=== PATIENT | female | born 1960 | race Caucasian/White ===

== ENCOUNTER 2016-07-08 09:20 | Emergency (ER) | payer BC ==
[~2016-07-08] VITALS: Ht 157.5 cm; Wt 85.7 kg
[~2016-07-08 09:20] MED LIST: AMLO10TA2 PO; LISI-334 PO; METO25TA4 PO
--- NOTE | 2016-07-08 10:51 | RAD ---
Indication pain. AP and lateral films of the left femur were obtained. Femur was imaged to just above the knee. AP oblique and lateral views of the left knee were obtained as well as a sunrise view. No acute bony finding is seen. Significant joint fluid is not apparent
--- NOTE | 2016-07-08 11:50 | PHYS DOC ---
Past Medical History Past Medical History: DVT, Hypertension, Other Additional Past Medical Histor: HLD Past Surgical History: No Surgical History Additional Past Surgical Histo: hernia repair, kidney stone, right eye Alcohol Use: None Drug Use: None Adult General Chief Complaint Chief Complaint: LOWER EXT PAIN [facility] HPI Patient is a 55 year old female with history of hypertension who presents today with mild left proximal femur pain that began 2 weeks ago. Patient states the pain is worse on flexion of the knee. Patient denies any trauma. Review of Systems Review of Systems Constitutional: Denies fever or chills [] Eyes: Denies change in visual acuity, redness, or eye pain [] HENT: Denies nasal congestion or sore throat [] Respiratory: Denies cough or shortness of breath [] Cardiovascular: No additional information not addressed in HPI [] GI: Denies abdominal pain, nausea, vomiting, bloody stools or diarrhea [] : Denies dysuria or hematuria [] Musculoskeletal: Left distal femur pain Integument: Denies rash or skin lesions [] Neurologic: Denies headache, focal weakness or sensory changes [] Endocrine: Denies polyuria or polydipsia [] Allergies Allergies Allergies Coded Allergies Type Severity Reaction Last Updated Verified cefazolin Allergy Unknown 05/21/13 Yes Physical Exam Physical Exam Constitutional: Well developed, well nourished, no acute distress, non-toxic appearance. [] HENT: Normocephalic, atraumatic, bilateral external ears normal, oropharynx moist, no oral exudates, nose normal. [] Eyes: PERRLA, EOMI, conjunctiva normal, no discharge. [] Neck: Normal range of motion, no tenderness, supple, no stridor. [] Cardiovascular:Heart rate regular rhythm, no murmur [] Lungs & Thorax: Bilateral breath sounds clear to auscultation [] Abdomen: Bowel sounds normal, soft, no tenderness, no masses, no pulsatile masses. [] Skin: Warm, dry, no erythema, no rash. [] Back: No tenderness, no CVA tenderness. [] Extremities: Left lower extremity with no obvious deformity, no tenderness on palpation of the left lower extremity. Full range of motion to the left lower extremity. Negative Tiffany sign and negative Dennis's sign negative anterior- posterior drawer sign to the left knee. +2 left pedal pulse. Cap refill less than 2 seconds the left lower extremity. Neurologic: Alert and oriented X 3, normal motor function, normal sensory function, no focal deficits noted. [] Psychologic: Affect normal, judgement normal, mood normal. [] Current Patient Data Vital Signs Vital Signs Date Time Temp Pulse Resp B/P (MAP) Pulse Ox O2 Delivery O2 Flow Rate FiO2 07/08/16 09:41 98.1 72 18 170/97 (121) 97 Room Air 98.1 EKG EKG [] Radiology/Procedures Radiology/Procedures [] Course & Med Decision Making Course & Med Decision Making Pertinent Labs and Imaging studies reviewed. (See chart for details) Patient is in the ED with complaints of left distal femur pain, no injury. Pain appears musculoskeletal. X-ray of the left femur and left knee interpreted by radiologist are negative for any acute findings. Discharged with Medrol Dosepak and Flexeril. Provided orthopedic doctor for follow-up in one week. Dragon Disclaimer Dragon Disclaimer This electronic medical record was generated, in whole or in part, using a voice recognition dictation system. Departure Departure Impression: Primary Impression: Pain of left lower extremity Disposition: HOME, SELF-CARE Condition: STABLE Referrals: UNKNOWN PCP NAME (PCP) LELIA ARAUJO MD follow up in one week Patient Instructions: Musculoskeletal Pain Additional Instructions: You were seen for musculoskeletal pain of the left lower extremity. Follow-up with the provided orthopedic doctor or your own doctor in one week. Take the prescribed medicines as ordered. Scripts Cyclobenzaprine Hcl (CYCLOBENZAPRINE HCL) 10 Mg Tablet 1 TAB PO TID, #30 TAB Prov: JOHNNY MAS [employer] 07/08/16 Diclofenac Potassium (DICLOFENAC POTASSIUM) 50 Mg Tablet 1 TAB PO BID, #30 TAB 1 Refill Prov: TGJOHNNY [employer] 07/08/16 Methylprednisolone (MEDROL) 4 Mg Tab.ds.pk 1 PKG PO UD, #1 PKG Prov: JOHNNY MAS [employer] 07/08/16 JOHNNY MAS MONA July 08, 2016 11:50
[2016-07-08] MEDS ORDERED: CYCL10TA2 PO (11:57)
[2016-07-08] MEDS ORDERED: DICL50TA2 PO (11:57)
[2016-07-08] MEDS ORDERED: METH4TAB2 PO (11:57)
[2016-07-08 12:01] VITALS: BP 149/75
== END 2016-07-08 12:02 | disposition home or self-care (01) ==
LOC: ER 09:20
DX: M79.605 Pain in left leg (principal); I10 Essential (primary) hypertension; E78.5 Hyperlipidemia, unspecified; Z86.718 Personal history of other venous thrombosis and embolism; Z87.442 Personal history of urinary calculi; Z88.1 Allergy status to other antibiotic agents
CPT/HCPCS: 73552; 73564; 99284

== ENCOUNTER 2018-02-04 08:53 | Emergency (ER) | payer BC ==
[~2018-02-04] VITALS: Ht 157.5 cm; Wt 81.6 kg
[~2018-02-04 08:53] MED LIST changes: -AMLO10TA2 PO; +AMLO10TA6 PO; +CYCL10TA2 PO; +DICL50TA2 PO; +METH4TAB2 PO
[2018-02-04 09:52] LABS: BILIRUBIN,URINE NEGATIVE (NEG); CLARITY,URINE CLEAR; COLOR,URINE YELLOW; NITRITE,URINE NEGATIVE (NEG); PH,URINE 6.5; PROTEIN,URINE NEGATIVE (NEG-TRACE); UROBILINOGEN,URINE 0.2 mg/dL (0.2 mg/dL)
[2018-02-04] MEDS ORDERED: ORPHENADRINE CITRATE 60 MG/2 ML VIAL. IM ONE (10:00)
[2018-02-04] MEDS ORDERED: KETOROLAC 60 MG/2 ML VIAL. IM ONE (10:00)
[2018-02-04 10:07] LABS: BACTERIA,URINE 0 /HPF (0-FEW); RBC,URINE 0 /HPF (0-2); SQUAMOUS EPITHELIAL CELL,UR FEW /LPF; WBC,URINE 0 /HPF (0-4)
[2018-02-04] MEDS ORDERED: ORPH100T PO (10:23)
[2018-02-04] MEDS ORDERED: IBUP-1007 PO (10:23)
--- NOTE | 2018-02-04 10:23 | PHYS DOC ---
Past Medical History Past Medical History: DVT, Hypertension, Other Additional Past Medical Histor: HLD Past Surgical History: Other Additional Past Surgical Histo: hernia repair, kidney stone, right eye Alcohol Use: None Drug Use: None Adult General Chief Complaint Chief Complaint: BACK PAIN OR INJURY HPI HPI Patient is a 57 year old female who presents with yesterday she was using the restroom and when she went to wipe herself she bent over and twisted to the side of which she began having mid lower left back pain especially with movement. Doesn't radiate. Patient is ambulatory with a steady gait. Review of Systems Review of Systems Constitutional: Denies fever or chills [] Eyes: Denies change in visual acuity, redness, or eye pain [] HENT: Denies nasal congestion or sore throat [] Respiratory: Denies cough or shortness of breath [] Cardiovascular: No additional information not addressed in HPI [] GI: Denies abdominal pain, nausea, vomiting, bloody stools or diarrhea [] : Denies dysuria or hematuria [] Musculoskeletal: Left lower back pain or joint pain [] Integument: Denies rash or skin lesions [] Neurologic: Denies headache, focal weakness or sensory changes [] All other systems were reviewed and found to be within normal limits, except as documented in this note. Current Medications Current Medications Current Medications Medications (Trade) Dose Ordered Sig/Cristina Start Time Stop Time Status Last Admin Dose Admin Ketorolac Tromethamine (Toradol Im) 60 mg 1X ONCE 02/04/18 10:00 02/04/18 10:01 DC 02/04/18 09:55 60 MG Orphenadrine Citrate (Norflex) 60 mg 1X ONCE 02/04/18 10:00 02/04/18 10:01 DC 02/04/18 09:54 60 MG Allergies Allergies Allergies Coded Allergies Type Severity Reaction Last Updated Verified cefazolin Allergy Intermediate 02/04/18 Yes Physical Exam Physical Exam Constitutional: Well developed, well nourished, no acute distress, non-toxic appearance. [] HENT: Normocephalic, atraumatic, bilateral external ears normal, oropharynx moist, no oral exudates, nose normal. [] Eyes: PERRLA, EOMI, conjunctiva normal, no discharge. [] Neck: Normal range of motion, no tenderness, supple, no stridor. [] Cardiovascular:Heart rate regular rhythm, no murmur [] Lungs & Thorax: Bilateral breath sounds clear to auscultation [] Abdomen: Bowel sounds normal, soft, no tenderness, no masses, no pulsatile masses. [] Skin: Warm, dry, no erythema, no rash. [] Back: Left lower mid back tenderness, no CVA tenderness. [] Extremities: No tenderness, no cyanosis, no clubbing, ROM intact, no edema. [] Neurologic: Alert and oriented X 3, normal motor function, normal sensory function, no focal deficits noted. [] Psychologic: Affect normal, judgement normal, mood normal. [] Current Patient Data Vital Signs Vital Signs Date Time Temp Pulse Resp B/P (MAP) Pulse Ox O2 Delivery O2 Flow Rate FiO2 02/04/18 09:28 97.7 68 18 173/80 (111) 97 Room Air 97.7 Lab Values Laboratory Tests Test 02/04/18 09:27 Urine Collection Type Unknown Urine Color Yellow Urine Clarity Clear Urine pH 6.5 Urine Specific Latty 1.020 Urine Protein Negative mg/dL (NEG-TRACE) Urine Glucose (UA) Negative mg/dL (NEG) Urine Ketones (Stick) Negative mg/dL (NEG) Urine Blood Negative (NEG) Urine Nitrite Negative (NEG) Urine Bilirubin Negative (NEG) Urine Urobilinogen Dipstick 0.2 mg/dL (0.2 mg/dL) Urine Leukocyte Esterase Small (NEG) Urine RBC 0 /HPF (0-2) Urine WBC 0 /HPF (0-4) Urine Squamous Epithelial Cells Few /LPF Urine Bacteria 0 /HPF (0-FEW) EKG EKG [] Radiology/Procedures Radiology/Procedures [] Course & Med Decision Making Course & Med Decision Making Patient is a 57 year old female who presents with yesterday she was using the restroom and when she went to wipe herself she bent over and twisted to the side of which she began having mid lower left back pain especially with movement. Doesn't radiate. Patient is ambulatory with a steady gait. Alert and oriented. Patient can move in bend but it does cause her pain. She denies numbness or tingling, nausea, vomiting, chest pain, dysuria. Patient has some tenderness with palpation to one small area on her left mid back. Skin is pink warm and dry. Dragon Disclaimer Dragon Disclaimer This electronic medical record was generated, in whole or in part, using a voice recognition dictation system. Departure Departure Impression: Primary Impression: Low back strain Disposition: 01 HOME, SELF-CARE Condition: STABLE Referrals: UNKNOWN PCP NAME (PCP) Patient Instructions: Low Back Strain with [facility] Additional Instructions: FOLLOW UP WITH YOUR PRIMARY CARE. TAKE MEDICATIONS PRESCRIBED. Scripts Orphenadrine Citrate (ORPHENADRINE CITRATE) 100 Mg Tablet.er 1 TAB PO BID, #20 TAB Prov: MERCEDES MCKEON APRN 02/04/18 Ibuprofen (IBUPROFEN) 600 Mg Tablet 600 MG PO PRN Q6HRS PRN for INFLAMMATION, #20 TAB Prov: MERCEDES MCKEON APRN 02/04/18 Problem Qualifiers Primary Impression: Low back strain Encounter type: initial encounter Qualified Codes: S39.012A - Strain of muscle, fascia and tendon of lower back, initial encounter MERCEDES MCKEON APRN Feb 04, 2018 10:23
[2018-02-04 10:46] VITALS: BP 163/76
== END 2018-02-04 10:34 | disposition home or self-care (01) ==
LOC: ER 08:53
DX: S39.012A Strain of muscle, fascia and tendon of lower back, initial encounter (principal); I10 Essential (primary) hypertension; Z86.718 Personal history of other venous thrombosis and embolism; E78.5 Hyperlipidemia, unspecified; Z88.1 Allergy status to other antibiotic agents; X50.1XXA Overexertion from prolonged static or awkward postures, initial encounter; Y93.89 Activity, other specified; Y92.89 Other specified places as the place of occurrence of the external cause; Y99.8 Other external cause status
CPT/HCPCS: 81001; 87086; 96372; 99283; J1885; J2360

== ENCOUNTER 2018-11-16 10:03 | Emergency (ER) | payer BC ==
[~2018-11-16] VITALS: Ht 157.5 cm; Wt 84.4 kg
[~2018-11-16 10:03] MED LIST changes: -AMLO10TA6 PO; +AMLO10TA8 PO; +IBUP-1007 PO; +ORPH100T PO
[2018-11-16 10:18] VITALS: BP 127/63
--- NOTE | 2018-11-16 10:27 | PHYS DOC ---
Past Medical History Past Medical History: DVT, Hypertension, Other Additional Past Medical Histor: HLD Past Surgical History: Other Additional Past Surgical Histo: hernia repair, kidney stone, right eye Alcohol Use: None Drug Use: None Adult General Chief Complaint Chief Complaint: PAIN ON URINATION [facility] HPI Patient is a 58 year old female who presents with complaining of burning with urination. Patient complaining of dysuria for the last 2 weeks without hematuria, urinary frequency, abdominal pain, nausea vomiting, fever and chills. Patient states she had history of occasional episodes of UTI. Review of Systems Review of Systems Constitutional: Denies fever or chills [] Eyes: Denies change in visual acuity, redness, or eye pain [] HENT: Denies nasal congestion or sore throat [] Respiratory: Denies cough or shortness of breath [] Cardiovascular: No additional information not addressed in HPI [] GI: Denies abdominal pain, nausea, vomiting, bloody stools or diarrhea [] : Denies hematuria , reports dysuria[] Musculoskeletal: Denies back pain or joint pain [] Integument: Denies rash or skin lesions [] Neurologic: Denies headache, focal weakness or sensory changes [] Endocrine: Denies polyuria or polydipsia [] All other systems were reviewed and found to be within normal limits, except as documented in this note. Allergies Allergies Allergies Coded Allergies Type Severity Reaction Last Updated Verified cefazolin Allergy Intermediate 02/04/18 Yes Physical Exam Physical Exam Constitutional: Well developed, well nourished, mild distress, non-toxic appearance. [] HENT: Normocephalic, atraumatic. Eyes: PERRLA, EOMI, conjunctiva normal, no discharge. [] Neck: Normal range of motion, no tenderness, supple, no stridor. [] Cardiovascular:Heart rate regular rhythm, no murmur [] Lungs & Thorax: Bilateral breath sounds clear to auscultation [] Abdomen: Bowel sounds normal, soft, no tenderness, no masses, no pulsatile masses. [] Skin: Warm, dry, no erythema, no rash. [] Back: No tenderness, no CVA tenderness. [] Extremities: No tenderness, no cyanosis, no clubbing, ROM intact, no edema. [] Neurologic: Alert and oriented X 3, no focal deficits noted. [] Psychologic: Affect normal, judgement normal, mood normal. [] Current Patient Data Vital Signs Vital Signs Date Time Temp Pulse Resp B/P (MAP) Pulse Ox O2 Delivery O2 Flow Rate FiO2 11/16/18 10:18 98.5 76 16 127/63 (84) 98 Room Air 98.5 Lab Values Laboratory Tests Test 11/16/18 10:20 Urine Collection Type Unknown Urine Color Yellow Urine Clarity Clear Urine pH 5.0 Urine Specific [place] 1.025 Urine Protein Negative mg/dL (NEG-TRACE) Urine Glucose (UA) Negative mg/dL (NEG) Urine Ketones (Stick) Negative mg/dL (NEG) Urine Blood Moderate (NEG) Urine Nitrite Negative (NEG) Urine Bilirubin Negative (NEG) Urine Urobilinogen Dipstick 0.2 mg/dL (0.2 mg/dL) Urine Leukocyte Esterase Large (NEG) Urine RBC 11-20 /HPF (0-2) Urine WBC >40 /HPF (0-4) Urine Squamous Epithelial Cells Occ /LPF Urine Bacteria Few /HPF (0-FEW) Urine Hyaline Casts Moderate /HPF Urine Mucus Marked /LPF EKG EKG [] Radiology/Procedures Radiology/Procedures [] Course & Med Decision Making Course & Med Decision Making Pertinent Labs reviewed. (See chart for details) Evaluation of patient in ER showed 58-year-old male patient with complaining of dysuria for 2 weeks. Patient had unremarkable physical exam. UA showed more than 40 WBC and few RBCs. Patient requesting a Pap smear. Patient had history of hysterectomy informed that she doesn't need Pap smear after hysterectomy. I've spoken with the patient and/or caregivers. I've explained the patient's condition, diagnosis and treatment plan based on information available to me at this time. I've answered the patient's and/or caregivers questions and addressed any concerns. The patient and/or caregivers have a good understanding the patient's diagnosis, condition and treatment plan as can be expected at this point. Vital signs have been stabilized. The patient's condition is stable for discharge from the emergency department. The patient will pursue further outpatient evaluation with her primary care provider or other designated consulting physician as outlined in the discharge instructions. Patient and/or caregivers are agreeable to this plan of care and follow-up instructions have been explained in detail. The patient and/or caregivers have received these instructions in written format and expressed understanding of these discharge instructions. The patient and her caregivers are aware that if any significant change in condition or worsening of symptoms should prompt him to immediately return to this of the closest emergency department. If an emergent department is not readily available I would encourage him to call 911. Rg Disclaimer Rg Disclaimer This electronic medical record was generated, in whole or in part, using a voice recognition dictation system. Departure Departure Impression: Primary Impression: Acute hemorrhagic cystitis Additional Impression: Dysuria Disposition: HOME, SELF-CARE (at 1048) Condition: STABLE Referrals: TRISTAIN LAYTON (PCP) Patient Instructions: Dysuria, Urinary Tract Infection Additional Instructions: Drink plenty of liquids Follow-up with your primary care physician in 3-5 days Return to ER if not getting better Scripts Phenazopyridine Hcl (PYRIDIUM) 100 Mg Tablet 100 MG PO TID for dysuria, #10 TAB Prov: KAITLYN WHITMORE MD 11/16/18 Ciprofloxacin Hcl (CIPRO) 250 Mg Tablet 1 TAB PO BID for infection, #14 TAB Prov: KAITLYN WHITMORE MD 11/16/18 Problem Qualifiers KAITLYN WHITMORE MD Nov 16, 2018 10:26
[2018-11-16 10:29] LABS: BILIRUBIN,URINE NEGATIVE (NEG); CLARITY,URINE CLEAR; COLOR,URINE YELLOW; NITRITE,URINE NEGATIVE (NEG); PROTEIN,URINE NEGATIVE (NEG-TRACE); UROBILINOGEN,URINE 0.2 mg/dL (0.2 mg/dL)
[2018-11-16 10:36] LABS: WBC,URINE >40 /HPF (0-4)
[2018-11-16 10:37] LABS: BACTERIA,URINE FEW /HPF (0-FEW); SQUAMOUS EPITHELIAL CELL,UR OCC /LPF
[2018-11-16 10:38] LABS: HYALINE CASTS, URINE MODERATE /HPF
[2018-11-16] MEDS ORDERED: PHEN100T82 PO (10:51)
[2018-11-16] MEDS ORDERED: CIPR250T30 PO (10:51)
== END 2018-11-16 11:01 | disposition home or self-care (01) ==
LOC: ER 10:03
DX: N30.00 Acute cystitis without hematuria (principal); I10 Essential (primary) hypertension; Z86.718 Personal history of other venous thrombosis and embolism; Z98.890 Other specified postprocedural states; Z87.442 Personal history of urinary calculi; Z88.8 Allergy status to other drugs, medicaments and biological substances
CPT/HCPCS: 81001; 87086; 99284

== ENCOUNTER 2019-03-03 04:58 | Inpatient (IN) | payer BC ==
[~2019-03-03] VITALS: Ht 157.5 cm; Wt 82.1 kg
[~2019-03-03 04:58] MED LIST changes: +CIPR250T30 PO; +PHEN100T82 PO
--- NOTE | 2019-03-03 05:12 | PHYS DOC ---
Past Medical History Past Medical History: DVT, Hypertension, Other Additional Past Medical Histor: HLD (JOHANA COSTA MD) Past Surgical History: Hysterectomy, Other Additional Past Surgical Histo: hernia repair, kidney stone, right eye (JOHANA COSTA MD) Alcohol Use: None Drug Use: None (JOHANA COSTA MD) Adult General Chief Complaint Chief Complaint: NAUSEA/VOMITING/DIARRHA HPI HPI 58 yo female with underlying history of HTN presents to the ER with complaints of nausea, vomiting, diarrhea, abdominal pain which started around 1 am. Patient describes the pain as achy/generalized. She states she is mildly bloated. Patient has vomited 4 times since waking up at 1am. Nothing makes her symptoms worse or better on exam. Patient denies any headache, visual change, chest pain or SOB. Patient states a coworker was sick yesterday. (JOHANA COSTA MD) Review of Systems Review of Systems Constitutional: Denies fever or chills [] Respiratory: Denies cough or shortness of breath [] Cardiovascular: No additional information not addressed in HPI [] GI: + abdominal pain, nausea, vomiting, diarrhea [] : Denies dysuria or hematuria [] Musculoskeletal: Denies back pain or joint pain [] Integument: Denies rash or skin lesions [] Neurologic: Denies headache, focal weakness or sensory changes [] All other systems were reviewed and found to be within normal limits, except as documented in this note. (JOHANA COSTA MD) Current Medications Current Medications Current Medications Medications (Trade) Dose Ordered Sig/Cristina Start Time Stop Time Status Last Admin Dose Admin Info (CONTRAST GIVEN -- Rx MONITORING) 1 each PRN DAILY PRN 03/03/19 07:30 03/05/19 07:29 Iohexol (Omnipaque 300 Mg/ml) 75 ml 1X ONCE 03/03/19 07:30 03/03/19 07:31 DC 03/03/19 07:38 75 ML Ketorolac Tromethamine (Toradol 30mg Vial) 30 mg 1X ONCE 03/03/19 07:15 03/03/19 07:16 DC 03/03/19 07:43 30 MG Ondansetron HCl (Zofran) 4 mg 1X ONCE 03/03/19 05:30 03/03/19 05:31 DC 03/03/19 06:04 4 MG Sodium Chloride 1,000 ml @ 1,000 mls/hr Q1H 03/03/19 05:30 03/03/19 06:29 DC 03/03/19 06:04 1,000 MLS/HR (KAITLYN WHITMORE MD) Allergies Allergies Allergies Coded Allergies Type Severity Reaction Last Updated Verified cefazolin Allergy Intermediate 02/04/18 Yes (KAITLYN WHITMORE MD) Physical Exam Physical Exam Constitutional: Well developed, well nourished, no acute distress, non-toxic appearance. [] HENT: Normocephalic, atraumatic, bilateral external ears normal, oropharynx moist, no oral exudates, nose normal. [] Eyes: PERRLA, EOMI, conjunctiva normal, no discharge. [] Cardiovascular:Heart rate regular rhythm, no murmur [] Lungs & Thorax: Bilateral breath sounds clear to auscultation [] Abdomen: Bowel sounds normal, soft, distended, generalized tenderness on exam, no masses, no pulsatile masses. [] Skin: Warm, dry, no erythema, no rash. [] Back: No tenderness, no CVA tenderness. [] Extremities: No tenderness, no edema. [] Neurologic: Alert and oriented X 3, no focal deficits noted. [] Psychologic: Affect normal, judgement normal, mood normal. [] (JOHANA COSTA MD) Current Patient Data Vital Signs Vital Signs Date Time Temp Pulse Resp B/P (MAP) Pulse Ox O2 Delivery O2 Flow Rate FiO2 03/03/19 07:45 70 18 159/76 (103) 98 Room Air 03/03/19 05:00 97.7 97.7 (KAITLYN WHITMORE MD) Lab Values Laboratory Tests Test 03/03/19 05:40 03/03/19 06:38 03/03/19 06:45 White Blood Count 9.2 x10^3/uL (4.0-11.0) Red Blood Count 4.57 x10^6/uL (3.50-5.40) Hemoglobin 13.3 g/dL (12.0-15.5) Hematocrit 40.1 % (36.0-47.0) Mean Corpuscular Volume 88 fL (79-100) Mean Corpuscular Hemoglobin 29 pg (25-35) Mean Corpuscular Hemoglobin Concent 33 g/dL (31-37) Red Cell Distribution Width 16.0 % (11.5-14.5) H Platelet Count 289 x10^3/uL (140-400) Neutrophils (%) (Auto) 80 % (31-73) H Lymphocytes (%) (Auto) 16 % (24-48) L Monocytes (%) (Auto) 3 % (0-9) Eosinophils (%) (Auto) 0 % (0-3) Basophils (%) (Auto) 0 % (0-3) Neutrophils # (Auto) 7.4 x10^3/uL (1.8-7.7) Lymphocytes # (Auto) 1.5 x10^3/uL (1.0-4.8) Monocytes # (Auto) 0.3 x10^3/uL (0.0-1.1) Eosinophils # (Auto) 0.0 x10^3/uL (0.0-0.7) Basophils # (Auto) 0.0 x10^3/uL (0.0-0.2) Sodium Level 140 mmol/L (136-145) Potassium Level 4.3 mmol/L (3.5-5.1) Chloride Level 102 mmol/L (98-107) Carbon Dioxide Level 26 mmol/L (21-32) Anion Gap 12 (6-14) Blood Urea Nitrogen 14 mg/dL (7-20) Creatinine 0.7 mg/dL (0.6-1.0) Estimated GFR (Cockcroft-Gault) 85.9 BUN/Creatinine Ratio 20 (6-20) Glucose Level 169 mg/dL (70-99) H Calcium Level 9.3 mg/dL (8.5-10.1) Magnesium Level 1.7 mg/dL (1.8-2.4) L Total Bilirubin 0.3 mg/dL (0.2-1.0) Aspartate Amino Transferase (AST) 21 U/L (15-37) Alanine Aminotransferase (ALT) 23 U/L (14-59) Alkaline Phosphatase 90 U/L (46-116) Total Protein 7.8 g/dL (6.4-8.2) Albumin 3.5 g/dL (3.4-5.0) Albumin/Globulin Ratio 0.8 (1.0-1.7) L Lipase 517 U/L (73-393) H Troponin I Quantitative < 0.017 ng/mL (0.000-0.055) Urine Collection Type Unknown Urine Color Yellow Urine Clarity Cloudy Urine pH 6.0 Urine Specific [place] >=1.030 Urine Protein 100 mg/dL (NEG-TRACE) Urine Glucose (UA) Negative mg/dL (NEG) Urine Ketones (Stick) Negative mg/dL (NEG) Urine Blood Moderate (NEG) Urine Nitrite Negative (NEG) Urine Bilirubin Negative (NEG) Urine Urobilinogen Dipstick 0.2 mg/dL (0.2 mg/dL) Urine Leukocyte Esterase Large (NEG) Urine RBC 3-5 /HPF (0-2) Urine WBC 20-40 /HPF (0-4) Urine Squamous Epithelial Cells Mod /LPF Urine Bacteria Few /HPF (0-FEW) Urine Mucus Marked /LPF Laboratory Tests 03/03/19 05:40 Laboratory Tests 03/03/19 05:40 (KAITLYN WHITMORE MD) Lab Values Laboratory Tests Test 03/03/19 05:40 White Blood Count 9.2 x10^3/uL (4.0-11.0) Red Blood Count 4.57 x10^6/uL (3.50-5.40) Hemoglobin 13.3 g/dL (12.0-15.5) Hematocrit 40.1 % (36.0-47.0) Mean Corpuscular Volume 88 fL (79-100) Mean Corpuscular Hemoglobin 29 pg (25-35) Mean Corpuscular Hemoglobin Concent 33 g/dL (31-37) Red Cell Distribution Width 16.0 % (11.5-14.5) H Platelet Count 289 x10^3/uL (140-400) Neutrophils (%) (Auto) 80 % (31-73) H Lymphocytes (%) (Auto) 16 % (24-48) L Monocytes (%) (Auto) 3 % (0-9) Eosinophils (%) (Auto) 0 % (0-3) Basophils (%) (Auto) 0 % (0-3) Neutrophils # (Auto) 7.4 x10^3/uL (1.8-7.7) Lymphocytes # (Auto) 1.5 x10^3/uL (1.0-4.8) Monocytes # (Auto) 0.3 x10^3/uL (0.0-1.1) Eosinophils # (Auto) 0.0 x10^3/uL (0.0-0.7) Basophils # (Auto) 0.0 x10^3/uL (0.0-0.2) Laboratory Tests 03/03/19 05:40 (JOHANA COSTA MD) EKG EKG [] (JOHANA COSTA MD) Radiology/Procedures Radiology/Procedures [] (JOHANA COSTA MD) Course & Med Decision Making Course & Med Decision Making Pertinent Labs and Imaging studies reviewed. (See chart for details) []58 yo female with underlying history of HTN presents to the ER with complaints of nausea, vomiting, diarrhea, abdominal pain which started around 1 am. Patient describes the pain as achy/generalized. She states she is mildly bloated. Patient has vomited 4 times since waking up at 1am. Nothing makes her symptoms worse or better on exam. Patient denies any headache, visual change, chest pain or SOB. Patient states a coworker was sick yesterday. Awaiting labs/imaging at this time Care transitioned to DR. WHITMORE at 0600 shift change. Disposition to be determined per DR. WHITMORE (JOHANA COSTA MD) Course & Med Decision Making @0700: Patient care transferred to ne at 0600. Patient had episode of nausea and vomiting and diarrhea since 1 AM. CBC and CMP was unremarkable except for magnesium of 1.7. UA showed 20-40 WBC. Patient complaining of generalized abdominal pain and rated her pain 8/10. Toradol was ordered. KUB did not show acute finding. CT abdomen and pelvis was ordered with pending results. @0820: Patient better after pain medication. Cipro for UTI was started. CT abdomen and pelvis showed ventral hernia with partial small bowel obstruction. Patient had history of previous ventral hernia repair.Patient requiring admission for further evaluation and treatment. Discussed with Dr. Francis who is in agreement with admission. Discussed findings and plan with patient and family, who acknowledge understanding and agreement. (KAITLYN WHITMORE MD) Dragon Disclaimer Dragon Disclaimer This electronic medical record was generated, in whole or in part, using a voice recognition dictation system. (JOHANA COSTA MD) Departure Departure Impression: Primary Impression: Partial small bowel obstruction Additional Impressions: Urinary tract infection Hypomagnesemia Disposition: 09 ADMITTED INPATIENT (0 820) Admitting Physician: [facility] (Dr. Francis accepted admission at 0818) (KAITLYN WHITMORE MD) Condition: IMPROVED Referrals: TRISTIAN LAYTON (PCP) Problem Qualifiers Additional Impressions: Urinary tract infection Urinary tract infection type: site unspecified Hematuria presence: without hematuria Qualified Codes: N39.0 - Urinary tract infection, site not specified JOHANA COSTA MD Mar 03, 2019 05:12 KAITLYN WHITMORE MD Mar 03, 2019 07:39
[2019-03-03] MEDS ORDERED: IV NORMAL SALINE 1000ML BAG 1,000 ML IV SCH (05:30)
[2019-03-03] MEDS ORDERED: ONDANSETRON PF 4 MG/2 ML VIAL. IV ONE (05:30)
[2019-03-03 05:55] LABS: BASO % 0 % (0-3); EOS % 0 % (0-3); HEMATOCRIT 40.1 % (36.0-47.0); HEMOGLOBIN 13.3 g/dL (12.0-15.5); LYMPH # 1.5 x10^3/uL (1.0-4.8); LYMPH % 16 % (24-48); MEAN CORPUSCULAR HEMOGLOBIN 29 pg (25-35); MEAN CORPUSCULAR HGB CONC 33 g/dL (31-37); MEAN CORPUSCULAR VOLUME 88 fL (79-100); MONO # 0.3 x10^3/uL (0.0-1.1); MONO % 3 % (0-9); NEUT # 7.4 x10^3/uL (1.8-7.7); NEUT % 80 % (31-73); PLATELET COUNT 289 x10^3/uL (140-400); RED BLOOD COUNT 4.57 x10^6/uL (3.50-5.40); WHITE BLOOD COUNT 9.2 x10^3/uL (4.0-11.0)
--- NOTE | 2019-03-03 06:05 | RAD ---
Supine abdomen. HISTORY: Bowel distention Supine views were taken of the abdomen. There is a single mildly dilated loop of small bowel to the right of midline. Pattern is somewhat nonspecific. There are changes from previous surgery. Patient's had a cholecystectomy. There is degenerative change in lumbar spine. IMPRESSION: 1. Single mildly dilated small bowel loop nonspecific pattern. Electronically signed by: Cj Streeter MD (03/03/2019 6:02 AM) [id number]
[2019-03-03 06:06] LABS: CALCIUM 9.3 mg/dL (8.5-10.1); CREATININE 0.7 mg/dL (0.6-1.0); GFR 85.9; POTASSIUM 4.3 mmol/L (3.5-5.1)
[2019-03-03 06:11] LABS: ALBUMIN 3.5 g/dL (3.4-5.0); ALBUMIN/GLOBULIN RATIO 0.8 (1.0-1.7); TOTAL BILIRUBIN 0.3 mg/dL (0.2-1.0); TOTAL PROTEIN 7.8 g/dL (6.4-8.2)
[2019-03-03 07:00] LABS: BILIRUBIN,URINE NEGATIVE (NEG); CLARITY,URINE CLOUDY; COLOR,URINE YELLOW; NITRITE,URINE NEGATIVE (NEG); PROTEIN,URINE 100 mg/dL (NEG-TRACE); UROBILINOGEN,URINE 0.2 mg/dL (0.2 mg/dL)
[2019-03-03] MEDS ORDERED: KETOROLAC 30 MG/ML VIAL. IVP ONE (07:15)
[2019-03-03 07:30] LABS: BACTERIA,URINE FEW /HPF (0-FEW); WBC,URINE 20-40 /HPF (0-4)
[2019-03-03] MEDS ORDERED: IOHEXOL 300 MG/ML 100ML VIAL. IV ONE (07:30)
[2019-03-03] MEDS ORDERED: CONTRAST GIVEN. MC PRN (07:30)
[2019-03-03 07:31] LABS: SQUAMOUS EPITHELIAL CELL,UR MOD /LPF
--- NOTE | 2019-03-03 08:03 | RAD ---
CT ABD PELV W/ IV CONTRST ONLY History: Abdominal pain, nausea, vomiting Comparison: 06/26/2011 Technique: After administration of intravenous contrast, helical CT of the abdomen and pelvis was performed from the lung bases through the ischial tuberosities. Coronal and sagittal reconstructions were obtained. 75 mL of Omnipaque 350 were used. One or more of the following dose reduction techniques were utilized: Automated exposure control (AEC), Adjustment of mA and/or kV according to patient size, Use of iterative reconstruction technique such as ASiR, CT scan done according to ALARA and image gently/image wisely Abdomen Findings: The visualized lung bases are clear. Cardiomegaly. The liver, pancreas, spleen, and bilateral adrenal glands are normal. Cholecystectomy. Symmetric renal enhancement. There is no focal renal mass. There is no hydronephrosis. Small hiatal hernia. Ventral abdominal wall hernia. Multiple dilated loops of small bowel extending into the hernia, with some loops of decompressed bowel exiting a more focal hernia outpouching along its inferior margin. Additional central abdominal small bowel anastomosis with focal dilatation. Small amount of fluid in the colon. Colonic diverticulosis. Appendix is normal. There is no free fluid. There is no mesenteric or retroperitoneal adenopathy. The abdominal aorta is normal in caliber. Pelvis Findings: Urinary bladder is normal. No pelvic free fluid. There is no pelvic or inguinal adenopathy. Degenerative changes of the spine. IMPRESSION: Ventral hernia with multiple associated dilated fluid-filled loops of small bowel and decompressed bowel exiting towards the colon. Small amount of fluid is seen within the proximal colon. Findings concerning for a partial or developing small bowel obstruction associated with the ventral hernia. Electronically signed by: Valdez Helms MD (03/03/2019 8:00 AM) [id number]
[2019-03-03] MEDS ORDERED: MORPHINE SULFATE 4 MG/ML VIAL. IV PRN (08:30)
[2019-03-03] MEDS ORDERED: CIPROFLOXACIN 400MG PREMIX 200 ML IV ONE (08:30)
[2019-03-03] MEDS ORDERED: ONDANSETRON PF 4 MG/2 ML VIAL. IV PRN (08:30)
[2019-03-03 09:22] VITALS: BP 138/76
--- NOTE | 2019-03-03 10:36 | PDOC1 ---
History and Physical Date of Admission: Date of Admission DATE: 03/03/19 TIME: 10:31 Chief Complaint: Problems: (1) Nonspecific abdominal symptom (2) Insect bite (3) Contact dermatitis (4) Low back strain (5) Abdominal pain (6) Hypomagnesemia (7) Urinary tract infection (8) Partial small bowel obstruction (9) Otalgia of left ear Chief Complain: Abdominal pain nausea vomiting History of Present Illness: HPI: This is a middle-aged -[place] female who had a previous hernia repair at the [facility] During that surgery they apparently perfect her bowel She then had a open wound for several months that was healing slowly this was all done 15 years ago Now she presents with small bowel obstruction symptoms She has abdominal pain with associated nausea some vomiting Rates her symptoms at 7 out of 10 Food makes it worse no food makes it better Describes her symptoms as agonizing [place] slowly developing over several days but got worse in the last 24 hours I discussed the case with the ER physician we are going to with patient and consult general surgery Past Medical/Surgical History: PMH/PSH: Past Medical History: DVT, Hypertension, Other Additional Past Medical Histor: HLD Past Surgical History: Hysterectomy, Other Additional Past Surgical Histo: hernia repair, kidney stone, right eye, bowel perforation, mesh Allergies: Allergies: Coded Allergies: cefazolin (Verified Allergy, Intermediate, 02/04/18) Family History: Family History: Coronary disease Social History: Social Hisoty: She works at the school in food services She does not drink smoke or take drugs Current Medications: Current Medications Current Medications Sodium Chloride 1,000 ml @ 1,000 mls/hr Q1H IV Last administered on 03/03/19at 06:04; Start 03/03/19 at 05:30; Stop 03/03/19 at 06:29; Status DC Ondansetron HCl (Zofran) 4 mg 1X ONCE IV Last administered on 03/03/19at 06:04; Start 03/03/19 at 05:30; Stop 03/03/19 at 05:31; Status DC Ketorolac Tromethamine (Toradol 30mg Vial) 30 mg 1X ONCE IVP Last administered on 03/03/19at 07:43; Start 03/03/19 at 07:15; Stop 03/03/19 at 07:16; Status DC Iohexol (Omnipaque 300 Mg/ml) 75 ml 1X ONCE IV Last administered on 03/03/19at 07:38; Start 03/03/19 at 07:30; Stop 03/03/19 at 07:31; Status DC Info (CONTRAST GIVEN -- Rx MONITORING) 1 each PRN DAILY PRN MC SEE COMMENTS; Start 03/03/19 at 07:30; Stop 03/05/19 at 07:29 Ciprofloxacin/ Dextrose 200 ml @ 200 mls/hr 1X ONCE IV Last administered on 03/03/19at 08:57; Start 03/03/19 at 08:30; Stop 03/03/19 at 09:29; Status DC Ondansetron HCl (Zofran) 4 mg PRN Q8HRS PRN IV NAUSEA/VOMITING; Start 03/03/19 at 08:30; Stop 03/03/19 at 14:00 Morphine Sulfate (Morphine Sulfate) 4 mg PRN Q4HRS PRN IV PAIN; Start 03/03/19 at 08:30 Sodium Chloride 1,000 ml @ 150 mls/hr Q6H40M IV ; Start 03/03/19 at 08:19; Stop 03/04/19 at 08:18 Active Scripts Active Pyridium (Phenazopyridine Hcl) 100 Mg Tablet 100 Mg PO TID Cipro (Ciprofloxacin Hcl) 250 Mg Tablet 1 Tab PO BID Orphenadrine Citrate 100 Mg Tablet.er 1 Tab PO BID Ibuprofen 600 Mg Tablet 600 Mg PO PRN Q6HRS PRN Cyclobenzaprine Hcl 10 Mg Tablet 1 Tab PO TID Diclofenac Potassium 50 Mg Tablet 1 Tab PO BID Medrol (Methylprednisolone) 4 Mg Tab.ds.pk 1 Pkg PO UD Reported Amlodipine Besylate 10 Mg Tablet 10 Mg PO DAILY Metoprolol Tartrate 25 Mg Tablet 1 Tab PO BID Lisinopril 20 Mg Tablet 1 Tab PO DAILY ROS: Review of Systems Review of System REVIEW OF SYSTEMS: GENERAL: Denies weakness SKIN: No bruising, hair changes or rashes. EYES: No blurred, double or loss of vision. NOSE AND THROAT: No history of nosebleeds, hoarseness or sore throat. HEART: No history of palpitations, chest pain or shortness of breath on exertion. LUNGS: Denies cough, hemoptysis, wheezing or shortness of breath. GASTROINTESTINAL: Complains of abdominal pain and nausea vomiting GENITOURINARY: No history of frequency, urgency, hesitancy or nocturia. NEUROLOGIC: Denies history of numbness, tingling, or tremor. PSYCHIATRIC: No history of panic, anxiety or depression. ENDOCRINE: No history of heat or cold intolerance, polyuria or polydipsia. EXTREMITIES: Denies joint pain, pain on walking or stiffness. Physical Exam: Vital Signs: Vital Signs Date Time Temp Pulse Resp B/P (MAP) Pulse Ox O2 Delivery O2 Flow Rate FiO2 03/03/19 09:22 98.0 68 18 138/76 (96) 98 Room Air 98.0 Physcial Exam: GEN: No apparent distress. Alert and oriented HEENT: Normal cephalic, atraumatic, external auditory canals are patent EYES: Extraocular muscles are intact, pupil are equally round and reactive to light and accommodation MUSCULOSKELETAL: Well developed , well nourished, good range of motion ENDOCRINE: No thyromegaly was palpated LYMPHATICS: No cervical chain or axillary nodes were noted HEMATOPOIETIC: No bruising NECK: Supple, no JVD, no thyromegaly was noted LUNGS: Clear to auscultation in all lung aldana without rhonchi or wheezing HEART: RRR, S!, S2 present. Peripheral pulses intact, no obvious murmurs noted ABDOMEN: The abdomen is very distended decreased bowel sounds somewhat tender EXTREMITIES: Without clubbing, cyanosis, or edema. Pedal pulses intact. Negative Homans sign NEUROLOGIC: Normal speech and tone. A&O x 3, moves all extremities, no obvious focal deficits PSYCHIATRIC: Normal affect, normal mood. Stable SKIN: No ulcerations or rashes, good skin turgor, no jaundice VASCULAR: Good capillary refill, neurovascular bundle appears to be intact Labs: Labs: Laboratory Tests Test 03/03/19 05:40 03/03/19 06:38 03/03/19 06:45 White Blood Count 9.2 x10^3/uL (4.0-11.0) Red Blood Count 4.57 x10^6/uL (3.50-5.40) Hemoglobin 13.3 g/dL (12.0-15.5) Hematocrit 40.1 % (36.0-47.0) Mean Corpuscular Volume 88 fL (79-100) Mean Corpuscular Hemoglobin 29 pg (25-35) Mean Corpuscular Hemoglobin Concent 33 g/dL (31-37) Red Cell Distribution Width 16.0 % (11.5-14.5) Platelet Count 289 x10^3/uL (140-400) Neutrophils (%) (Auto) 80 % (31-73) Lymphocytes (%) (Auto) 16 % (24-48) Monocytes (%) (Auto) 3 % (0-9) Eosinophils (%) (Auto) 0 % (0-3) Basophils (%) (Auto) 0 % (0-3) Neutrophils # (Auto) 7.4 x10^3/uL (1.8-7.7) Lymphocytes # (Auto) 1.5 x10^3/uL (1.0-4.8) Monocytes # (Auto) 0.3 x10^3/uL (0.0-1.1) Eosinophils # (Auto) 0.0 x10^3/uL (0.0-0.7) Basophils # (Auto) 0.0 x10^3/uL (0.0-0.2) Sodium Level 140 mmol/L (136-145) Potassium Level 4.3 mmol/L (3.5-5.1) Chloride Level 102 mmol/L (98-107) Carbon Dioxide Level 26 mmol/L (21-32) Anion Gap 12 (6-14) Blood Urea Nitrogen 14 mg/dL (7-20) Creatinine 0.7 mg/dL (0.6-1.0) Estimated GFR (Cockcroft-Gault) 85.9 BUN/Creatinine Ratio 20 (6-20) Glucose Level 169 mg/dL (70-99) Calcium Level 9.3 mg/dL (8.5-10.1) Magnesium Level 1.7 mg/dL (1.8-2.4) Total Bilirubin 0.3 mg/dL (0.2-1.0) Aspartate Amino Transf (AST/SGOT) 21 U/L (15-37) Alanine Aminotransferase (ALT/SGPT) 23 U/L (14-59) Alkaline Phosphatase 90 U/L (46-116) Total Protein 7.8 g/dL (6.4-8.2) Albumin 3.5 g/dL (3.4-5.0) Albumin/Globulin Ratio 0.8 (1.0-1.7) Lipase 517 U/L (73-393) Troponin I Quantitative < 0.017 ng/mL (0.000-0.055) Urine Collection Type Unknown Urine Color Yellow Urine Clarity Cloudy Urine pH 6.0 Urine Specific [place] >=1.030 Urine Protein 100 mg/dL (NEG-TRACE) Urine Glucose (UA) Negative mg/dL (NEG) Urine Ketones (Stick) Negative mg/dL (NEG) Urine Blood Moderate (NEG) Urine Nitrite Negative (NEG) Urine Bilirubin Negative (NEG) Urine Urobilinogen Dipstick 0.2 mg/dL (0.2 mg/dL) Urine Leukocyte Esterase Large (NEG) Urine RBC 3-5 /HPF (0-2) Urine WBC 20-40 /HPF (0-4) Urine Squamous Epithelial Cells Mod /LPF Urine Bacteria Few /HPF (0-FEW) Urine Mucus Marked /LPF Laboratory Tests Test 03/03/19 05:40 03/03/19 06:38 03/03/19 06:45 White Blood Count 9.2 x10^3/uL (4.0-11.0) Red Blood Count 4.57 x10^6/uL (3.50-5.40) Hemoglobin 13.3 g/dL (12.0-15.5) Hematocrit 40.1 % (36.0-47.0) Mean Corpuscular Volume 88 fL (79-100) Mean Corpuscular Hemoglobin 29 pg (25-35) Mean Corpuscular Hemoglobin Concent 33 g/dL (31-37) Red Cell Distribution Width 16.0 % (11.5-14.5) Platelet Count 289 x10^3/uL (140-400) Neutrophils (%) (Auto) 80 % (31-73) Lymphocytes (%) (Auto) 16 % (24-48) Monocytes (%) (Auto) 3 % (0-9) Eosinophils (%) (Auto) 0 % (0-3) Basophils (%) (Auto) 0 % (0-3) Neutrophils # (Auto) 7.4 x10^3/uL (1.8-7.7) Lymphocytes # (Auto) 1.5 x10^3/uL (1.0-4.8) Monocytes # (Auto) 0.3 x10^3/uL (0.0-1.1) Eosinophils # (Auto) 0.0 x10^3/uL (0.0-0.7) Basophils # (Auto) 0.0 x10^3/uL (0.0-0.2) Sodium Level 140 mmol/L (136-145) Potassium Level 4.3 mmol/L (3.5-5.1) Chloride Level 102 mmol/L (98-107) Carbon Dioxide Level 26 mmol/L (21-32) Anion Gap 12 (6-14) Blood Urea Nitrogen 14 mg/dL (7-20) Creatinine 0.7 mg/dL (0.6-1.0) Estimated GFR (Cockcroft-Gault) 85.9 BUN/Creatinine Ratio 20 (6-20) Glucose Level 169 mg/dL (70-99) Calcium Level 9.3 mg/dL (8.5-10.1) Magnesium Level 1.7 mg/dL (1.8-2.4) Total Bilirubin 0.3 mg/dL (0.2-1.0) Aspartate Amino Transf (AST/SGOT) 21 U/L (15-37) Alanine Aminotransferase (ALT/SGPT) 23 U/L (14-59) Alkaline Phosphatase 90 U/L (46-116) Total Protein 7.8 g/dL (6.4-8.2) Albumin 3.5 g/dL (3.4-5.0) Albumin/Globulin Ratio 0.8 (1.0-1.7) Lipase 517 U/L (73-393) Troponin I Quantitative < 0.017 ng/mL (0.000-0.055) Urine Collection Type Unknown Urine Color Yellow Urine Clarity Cloudy Urine pH 6.0 Urine Specific [place] >=1.030 Urine Protein 100 mg/dL (NEG-TRACE) Urine Glucose (UA) Negative mg/dL (NEG) Urine Ketones (Stick) Negative mg/dL (NEG) Urine Blood Moderate (NEG) Urine Nitrite Negative (NEG) Urine Bilirubin Negative (NEG) Urine Urobilinogen Dipstick 0.2 mg/dL (0.2 mg/dL) Urine Leukocyte Esterase Large (NEG) Urine RBC 3-5 /HPF (0-2) Urine WBC 20-40 /HPF (0-4) Urine Squamous Epithelial Cells Mod /LPF Urine Bacteria Few /HPF (0-FEW) Urine Mucus Marked /LPF Images: Images CT ABD PELV W/ IV CONTRST ONLY History: Abdominal pain, nausea, vomiting Comparison: 06/26/2011 Technique: After administration of intravenous contrast, helical CT of the abdomen and pelvis was performed from the lung bases through the ischial tuberosities. Coronal and sagittal reconstructions were obtained. 75 mL of Omnipaque 350 were used. One or more of the following dose reduction techniques were utilized: Automated exposure control (AEC), Adjustment of mA and/or kV according to patient size, Use of iterative reconstruction technique such as ASiR, CT scan done according to ALARA and image gently/image wisely Abdomen Findings: The visualized lung bases are clear. Cardiomegaly. The liver, pancreas, spleen, and bilateral adrenal glands are normal. Cholecystectomy. Symmetric renal enhancement. There is no focal renal mass. There is no hydronephrosis. Small hiatal hernia. Ventral abdominal wall hernia. Multiple dilated loops of small bowel extending into the hernia, with some loops of decompressed bowel exiting a more focal hernia outpouching along its inferior margin. Additional central abdominal small bowel anastomosis with focal dilatation. Small amount of fluid in the colon. Colonic diverticulosis. Appendix is normal. There is no free fluid. There is no mesenteric or retroperitoneal adenopathy. The abdominal aorta is normal in caliber. Pelvis Findings: Urinary bladder is normal. No pelvic free fluid. There is no pelvic or inguinal adenopathy. Degenerative changes of the spine. IMPRESSION: Ventral hernia with multiple associated dilated fluid-filled loops of small bowel and decompressed bowel exiting towards the colon. Small amount of fluid is seen within the proximal colon. Findings concerning for a partial or developing small bowel obstruction associated with the ventral hernia. Assessment/Plan Assessment/Plan Small bowel obstruction Incidental finding of a UTI Plan IV Cipro 500 twice a day Consult general surgery Bowel rest IV fluids DVT prophylaxis Trend labs Full code Await further surgical input MIREYA AZUL III DO Mar 03, 2019 10:36
[2019-03-03] MEDS: CIPROFLOXACIN 400MG PREMIX 200 ML IV SCH ×2 (11:00→21:34)
--- NOTE | 2019-03-03 11:00 | NUR ---
The patient, MARIANNA MERRITT, 58 y/o, F admitted by MIREYA AZUL III, DO, was given written information regarding hospital policies, unit procedures and contact persons. Valuables were checked and left in room. Pt stable and ambulates with out difficulties.
[2019-03-03 11:07] VITALS: BP 136/69
--- NOTE | 2019-03-03 12:39 | NUR ---
Cleared reassessments from ED on EMAR. Non-administered CIPRO @ 1100 ED dose still infusing.
[2019-03-03] MEDS: IV NORMAL SALINE 1000ML BAG 1,000 ML IV SCH ×4 (12:45→23:21)
--- NOTE | 2019-03-03 13:17 | PDOC2 ---
LAUREN MON SIDE [facility] 03/03/19 1317: CONSULT Date of Consult Date of Consult DATE: 03/03/19 TIME: 13:08 Reason for Consult Reason for Consult: bowel obstruction Referring Physician Referring Physician: ER Identification/Chief Complaint Chief Complaint abdominal pain Source Source: Chart review, Patient History of Present Illness Reason for Visit: Admitted with acute abdominal pain, nausea. Pain was acute and persistent. She does have a history of a hernia repair with mesh, complications of bowel perf and open wound. This was 15 years ago Past Medical History Cardiovascular: HTN, Hyperlipidemia Pulmonary: Other (DVT) Past Surgical History Past Surgical History: Hernia Repair, Colon Resection Family History Family History: Other (nonconttributory to current illness ) Social History No ALCOHOL: none Drugs: None Lives: Alone Current Problem List Problem List Problems Medical Problems: (1) Abdominal pain Status: Acute (2) Hypomagnesemia Status: Acute (3) Urinary tract infection Status: Acute Current Medications Current Medications Current Medications Sodium Chloride 1,000 ml @ 1,000 mls/hr Q1H IV Last administered on 03/03/19at 06:04; Start 03/03/19 at 05:30; Stop 03/03/19 at 06:29; Status DC Ondansetron HCl (Zofran) 4 mg 1X ONCE IV Last administered on 03/03/19at 06:04; Start 03/03/19 at 05:30; Stop 03/03/19 at 05:31; Status DC Ketorolac Tromethamine (Toradol 30mg Vial) 30 mg 1X ONCE IVP Last administered on 03/03/19at 07:43; Start 03/03/19 at 07:15; Stop 03/03/19 at 07:16; Status DC Iohexol (Omnipaque 300 Mg/ml) 75 ml 1X ONCE IV Last administered on 03/03/19at 07:38; Start 03/03/19 at 07:30; Stop 03/03/19 at 07:31; Status DC Info (CONTRAST GIVEN -- Rx MONITORING) 1 each PRN DAILY PRN MC SEE COMMENTS; Start 03/03/19 at 07:30; Stop 03/05/19 at 07:29 Ciprofloxacin/ Dextrose 200 ml @ 200 mls/hr 1X ONCE IV Last administered on 03/03/19at 08:57; Start 03/03/19 at 08:30; Stop 03/03/19 at 09:29; Status DC Ondansetron HCl (Zofran) 4 mg PRN Q8HRS PRN IV NAUSEA/VOMITING; Start 03/03/19 at 08:30; Stop 03/03/19 at 14:00 Morphine Sulfate (Morphine Sulfate) 4 mg PRN Q4HRS PRN IV PAIN; Start 03/03/19 at 08:30 Sodium Chloride 1,000 ml @ 150 mls/hr Q6H40M IV Last administered on 03/03/19at 12:45; Start 03/03/19 at 08:19; Stop 03/04/19 at 08:18 Ciprofloxacin/ Dextrose 200 ml @ 200 mls/hr Q12HR IV ; Start 03/03/19 at 11:00 Active Scripts Active Ibuprofen 600 Mg Tablet 600 Mg PO PRN Q6HRS PRN Medrol (Methylprednisolone) 4 Mg Tab.ds.pk 1 Pkg PO UD Reported Amlodipine Besylate 10 Mg Tablet 10 Mg PO DAILY Metoprolol Tartrate 25 Mg Tablet 1 Tab PO BID Lisinopril 20 Mg Tablet 1 Tab PO DAILY Allergies Allergies: Coded Allergies: cefazolin (Verified Allergy, Intermediate, 02/04/18) ROS General: No: Chills, Other (fevers ) PSYCHOLOGICAL ROS: No: Anxiety, Depression Eyes: No Double vision HEENT: No: Heacaches, Sore Throat Hematological and Lymphatic: YES: Blood Clots; No: Bleeding Problems Respiratory: No: Cough, SOB with excertion Cardiovascular: No Chest Pain, No Palpitations Genitourinary: No Dysuria, No Hematuria Musculoskeletal: No Joint Pain, No Muscle Pain Neurological: No Impaired Coord/balance, No Numbness/Tingling Skin: No Pruritus, No Rash Physical Exam General: Alert, Oriented X3, Cooperative, No acute distress HEENT: PERRLA, Mucous membr. moist/pink Lungs: Clear to auscultation, Normal air movement Heart: Regular rate, Normal S1, Normal S2 Abdomen: Soft, Other (distention, midline scar) Extremities: No clubbing, No cyanosis Skin: No rashes, No breakdown Neuro: Normal gait, Normal speech Psych/Mental Status: Mental status NL, Mood NL MUSCULOSKELETAL: No deformity, No swelling Vitals VITALS Vital Signs Date Time Temp Pulse Resp B/P (MAP) Pulse Ox O2 Delivery O2 Flow Rate FiO2 03/03/19 11:07 98.4 69 18 136/69 (91) 97 Room Air 98.4 Labs Labs Laboratory Tests Test 03/03/19 05:40 03/03/19 06:38 03/03/19 06:45 White Blood Count 9.2 x10^3/uL (4.0-11.0) Red Blood Count 4.57 x10^6/uL (3.50-5.40) Hemoglobin 13.3 g/dL (12.0-15.5) Hematocrit 40.1 % (36.0-47.0) Mean Corpuscular Volume 88 fL (79-100) Mean Corpuscular Hemoglobin 29 pg (25-35) Mean Corpuscular Hemoglobin Concent 33 g/dL (31-37) Red Cell Distribution Width 16.0 % (11.5-14.5) Platelet Count 289 x10^3/uL (140-400) Neutrophils (%) (Auto) 80 % (31-73) Lymphocytes (%) (Auto) 16 % (24-48) Monocytes (%) (Auto) 3 % (0-9) Eosinophils (%) (Auto) 0 % (0-3) Basophils (%) (Auto) 0 % (0-3) Neutrophils # (Auto) 7.4 x10^3/uL (1.8-7.7) Lymphocytes # (Auto) 1.5 x10^3/uL (1.0-4.8) Monocytes # (Auto) 0.3 x10^3/uL (0.0-1.1) Eosinophils # (Auto) 0.0 x10^3/uL (0.0-0.7) Basophils # (Auto) 0.0 x10^3/uL (0.0-0.2) Sodium Level 140 mmol/L (136-145) Potassium Level 4.3 mmol/L (3.5-5.1) Chloride Level 102 mmol/L (98-107) Carbon Dioxide Level 26 mmol/L (21-32) Anion Gap 12 (6-14) Blood Urea Nitrogen 14 mg/dL (7-20) Creatinine 0.7 mg/dL (0.6-1.0) Estimated GFR (Cockcroft-Gault) 85.9 BUN/Creatinine Ratio 20 (6-20) Glucose Level 169 mg/dL (70-99) Calcium Level 9.3 mg/dL (8.5-10.1) Magnesium Level 1.7 mg/dL (1.8-2.4) Total Bilirubin 0.3 mg/dL (0.2-1.0) Aspartate Amino Transf (AST/SGOT) 21 U/L (15-37) Alanine Aminotransferase (ALT/SGPT) 23 U/L (14-59) Alkaline Phosphatase 90 U/L (46-116) Total Protein 7.8 g/dL (6.4-8.2) Albumin 3.5 g/dL (3.4-5.0) Albumin/Globulin Ratio 0.8 (1.0-1.7) Lipase 517 U/L (73-393) Troponin I Quantitative < 0.017 ng/mL (0.000-0.055) Urine Collection Type Unknown Urine Color Yellow Urine Clarity Cloudy Urine pH 6.0 Urine Specific [place] >=1.030 Urine Protein 100 mg/dL (NEG-TRACE) Urine Glucose (UA) Negative mg/dL (NEG) Urine Ketones (Stick) Negative mg/dL (NEG) Urine Blood Moderate (NEG) Urine Nitrite Negative (NEG) Urine Bilirubin Negative (NEG) Urine Urobilinogen Dipstick 0.2 mg/dL (0.2 mg/dL) Urine Leukocyte Esterase Large (NEG) Urine RBC 3-5 /HPF (0-2) Urine WBC 20-40 /HPF (0-4) Urine Squamous Epithelial Cells Mod /LPF Urine Bacteria Few /HPF (0-FEW) Urine Mucus Marked /LPF Laboratory Tests Test 03/03/19 05:40 03/03/19 06:38 03/03/19 06:45 White Blood Count 9.2 x10^3/uL (4.0-11.0) Red Blood Count 4.57 x10^6/uL (3.50-5.40) Hemoglobin 13.3 g/dL (12.0-15.5) Hematocrit 40.1 % (36.0-47.0) Mean Corpuscular Volume 88 fL (79-100) Mean Corpuscular Hemoglobin 29 pg (25-35) Mean Corpuscular Hemoglobin Concent 33 g/dL (31-37) Red Cell Distribution Width 16.0 % (11.5-14.5) Platelet Count 289 x10^3/uL (140-400) Neutrophils (%) (Auto) 80 % (31-73) Lymphocytes (%) (Auto) 16 % (24-48) Monocytes (%) (Auto) 3 % (0-9) Eosinophils (%) (Auto) 0 % (0-3) Basophils (%) (Auto) 0 % (0-3) Neutrophils # (Auto) 7.4 x10^3/uL (1.8-7.7) Lymphocytes # (Auto) 1.5 x10^3/uL (1.0-4.8) Monocytes # (Auto) 0.3 x10^3/uL (0.0-1.1) Eosinophils # (Auto) 0.0 x10^3/uL (0.0-0.7) Basophils # (Auto) 0.0 x10^3/uL (0.0-0.2) Sodium Level 140 mmol/L (136-145) Potassium Level 4.3 mmol/L (3.5-5.1) Chloride Level 102 mmol/L (98-107) Carbon Dioxide Level 26 mmol/L (21-32) Anion Gap 12 (6-14) Blood Urea Nitrogen 14 mg/dL (7-20) Creatinine 0.7 mg/dL (0.6-1.0) Estimated GFR (Cockcroft-Gault) 85.9 BUN/Creatinine Ratio 20 (6-20) Glucose Level 169 mg/dL (70-99) Calcium Level 9.3 mg/dL (8.5-10.1) Magnesium Level 1.7 mg/dL (1.8-2.4) Total Bilirubin 0.3 mg/dL (0.2-1.0) Aspartate Amino Transf (AST/SGOT) 21 U/L (15-37) Alanine Aminotransferase (ALT/SGPT) 23 U/L (14-59) Alkaline Phosphatase 90 U/L (46-116) Total Protein 7.8 g/dL (6.4-8.2) Albumin 3.5 g/dL (3.4-5.0) Albumin/Globulin Ratio 0.8 (1.0-1.7) Lipase 517 U/L (73-393) Troponin I Quantitative < 0.017 ng/mL (0.000-0.055) Urine Collection Type Unknown Urine Color Yellow Urine Clarity Cloudy Urine pH 6.0 Urine Specific [place] >=1.030 Urine Protein 100 mg/dL (NEG-TRACE) Urine Glucose (UA) Negative mg/dL (NEG) Urine Ketones (Stick) Negative mg/dL (NEG) Urine Blood Moderate (NEG) Urine Nitrite Negative (NEG) Urine Bilirubin Negative (NEG) Urine Urobilinogen Dipstick 0.2 mg/dL (0.2 mg/dL) Urine Leukocyte Esterase Large (NEG) Urine RBC 3-5 /HPF (0-2) Urine WBC 20-40 /HPF (0-4) Urine Squamous Epithelial Cells Mod /LPF Urine Bacteria Few /HPF (0-FEW) Urine Mucus Marked /LPF Assessment/Plan Assessment/Plan VIH, concern for SBO--will review with Dr Norman NPO, bowel rest KANDICE NORMAN MD 03/03/192022: CONSULT Assessment/Plan Assessment/Plan Pt seen and examined. Agree with Ms. Mon's note Pt with SBO with associated hernia. Pt with hx of complicated hernia repair 15 years ago. Currently feels improved, pain improved, no further N/V. Hungry. abd soft, ND, NTTP, morbidly obese, hernia appears reducible d/w pt conservative versus surgical intervention. She wishes to d/w family and consider evaluation at [facility], given previous surgery there. As she is clinically improving, urgent intervention not necessary. Will check [facility] in AM and consider options. Thanks for consult! LAUREN MON APRN Mar 03, 2019 13:17 KANDICE NORMAN MD Mar 03, 2019 20:23
[2019-03-03 15:02] VITALS: BP 135/77
[2019-03-03 19:20] VITALS: BP 142/65
[2019-03-03] MEDS ORDERED: TIMO10DR5 EACHEYE (20:37)
[2019-03-03] MEDS ORDERED: LOTE5DRO2 EACHEYE (20:37)
--- NOTE | 2019-03-03 22:24 | NUR ---
RN started Ciprofloxacin and pt started complaining of burning and itchiness around the IV site. Pt stated that this is the first time she has gotten this ABX and it was burning when she got it earlier too. She think she might have an allergic reaction to the medication. Dr. Morales notified and made aware. ABX discontinue and will pass information to day shift RN to let Dr. Francis know. Will continue to monitor pt closely.
[2019-03-03 23:02] VITALS: BP 129/68
[2019-03-04] VITALS (7 sets, daily range): BP systolic 130–166; BP diastolic 68–91
[2019-03-04] MEDS: IV NORMAL SALINE 1000ML BAG 1,000 ML IV SCH (05:44)
--- NOTE | 2019-03-04 07:53 | RAD ---
ABDOMEN SUPINE UPRIGHT History: Small bowel obstruction Comparison: March 03, 2019 CT exam Findings: Single upright and 2 supine AP views of the abdomen are submitted. No free air is identified. There are persistent loops of dilated small bowel more centrally in the abdomen, caliber grossly similar. There again has been cholecystectomy. Impression: 1. Degree of small bowel dilatation is similar. Electronically signed by: Valdez Goyal MD (03/04/2019 7:50 AM) [facility]
--- NOTE | 2019-03-04 10:33 | PDOC ---
SURGICAL PROGRESS NOTE Subjective Pt reports feeling better, no N/V, passing flatus, abd pain nearly resolved. Vital Signs Vital Signs Date Time Temp Pulse Resp B/P (MAP) Pulse Ox O2 Delivery O2 Flow Rate FiO2 03/04/19 07:00 98.0 89 18 156/69 (98) 97 Room Air 98.0 I&O Intake and Output 03/04/19 07:00 Intake Total 1000 ml Balance 1000 ml Intake Oral 0 ml IV Total 1000 ml # Voids 2 General: Alert, Oriented X3, Cooperative, No acute distress Abdomen: Soft, No tenderness, Other (appears to reduce hernia) Labs Laboratory Tests Test 03/03/19 05:40 03/03/19 06:38 03/03/19 06:45 White Blood Count 9.2 x10^3/uL (4.0-11.0) Red Blood Count 4.57 x10^6/uL (3.50-5.40) Hemoglobin 13.3 g/dL (12.0-15.5) Hematocrit 40.1 % (36.0-47.0) Mean Corpuscular Volume 88 fL (79-100) Mean Corpuscular Hemoglobin 29 pg (25-35) Mean Corpuscular Hemoglobin Concent 33 g/dL (31-37) Red Cell Distribution Width 16.0 % (11.5-14.5) Platelet Count 289 x10^3/uL (140-400) Neutrophils (%) (Auto) 80 % (31-73) Lymphocytes (%) (Auto) 16 % (24-48) Monocytes (%) (Auto) 3 % (0-9) Eosinophils (%) (Auto) 0 % (0-3) Basophils (%) (Auto) 0 % (0-3) Neutrophils # (Auto) 7.4 x10^3/uL (1.8-7.7) Lymphocytes # (Auto) 1.5 x10^3/uL (1.0-4.8) Monocytes # (Auto) 0.3 x10^3/uL (0.0-1.1) Eosinophils # (Auto) 0.0 x10^3/uL (0.0-0.7) Basophils # (Auto) 0.0 x10^3/uL (0.0-0.2) Sodium Level 140 mmol/L (136-145) Potassium Level 4.3 mmol/L (3.5-5.1) Chloride Level 102 mmol/L (98-107) Carbon Dioxide Level 26 mmol/L (21-32) Anion Gap 12 (6-14) Blood Urea Nitrogen 14 mg/dL (7-20) Creatinine 0.7 mg/dL (0.6-1.0) Estimated GFR (Cockcroft-Gault) 85.9 BUN/Creatinine Ratio 20 (6-20) Glucose Level 169 mg/dL (70-99) Calcium Level 9.3 mg/dL (8.5-10.1) Magnesium Level 1.7 mg/dL (1.8-2.4) Total Bilirubin 0.3 mg/dL (0.2-1.0) Aspartate Amino Transf (AST/SGOT) 21 U/L (15-37) Alanine Aminotransferase (ALT/SGPT) 23 U/L (14-59) Alkaline Phosphatase 90 U/L (46-116) Total Protein 7.8 g/dL (6.4-8.2) Albumin 3.5 g/dL (3.4-5.0) Albumin/Globulin Ratio 0.8 (1.0-1.7) Lipase 517 U/L (73-393) Troponin I Quantitative < 0.017 ng/mL (0.000-0.055) Urine Collection Type Unknown Urine Color Yellow Urine Clarity Cloudy Urine pH 6.0 Urine Specific [place] >=1.030 Urine Protein 100 mg/dL (NEG-TRACE) Urine Glucose (UA) Negative mg/dL (NEG) Urine Ketones (Stick) Negative mg/dL (NEG) Urine Blood Moderate (NEG) Urine Nitrite Negative (NEG) Urine Bilirubin Negative (NEG) Urine Urobilinogen Dipstick 0.2 mg/dL (0.2 mg/dL) Urine Leukocyte Esterase Large (NEG) Urine RBC 3-5 /HPF (0-2) Urine WBC 20-40 /HPF (0-4) Urine Squamous Epithelial Cells Mod /LPF Urine Bacteria Few /HPF (0-FEW) Urine Mucus Marked /LPF I have reviewed the following K[facility] with similar SB dilation Problem List Problems Medical Problems: (1) Abdominal pain Status: Acute (2) Hypomagnesemia Status: Acute (3) Urinary tract infection Status: Acute Assessment/Plan pt reports feeling better. Will try clears. She suspects food poisoning. D/w surgical intervention, which may be difficult given hx and obesity. She would like to consider evaluation at , given previous surgery there. KANDICE KELLY MD Mar 04, 2019 10:33
[2019-03-04] MEDS ORDERED: amLODIPine BESYLATE 10 MG TABLET PO SCH (11:00)
[2019-03-04] MEDS ORDERED: TIMOLOL 0.5% OPHTH SOLUTION 5ML BOTTLE. OU SCH (11:00)
[2019-03-04] MEDS ORDERED: METOPROLOL TART IMMED RELEASE 25 MG TABLET. PO SCH (11:00)
[2019-03-04] MEDS ORDERED: LISINOPRIL 20 MG TABLET PO SCH ×3 (11:00→21:00)
--- NOTE | 2019-03-04 11:32 | PDOC ---
PROGRESS NOTES History of Present Illness History of Present Illness IMPRESSION: Ventral hernia with multiple associated dilated fluid-filled loops of small bowel and decompressed bowel exiting towards the colon. Small amount of fluid is seen within the proximal colon. Findings concerning for a partial or developing small bowel obstruction associated with the ventral hernia. Assessment/Plan Assessment/Plan Small bowel obstruction Incidental finding of a UTI Plan macrobid 100mg po bid Consult general surgery Bowel rest IV fluids DVT prophylaxis Trend labs Full code no acute surgical needs consider evaluation at , given previous surgery there. Vitals Vitals Vital Signs Date Time Temp Pulse Resp B/P (MAP) Pulse Ox O2 Delivery O2 Flow Rate FiO2 03/04/19 11:00 97.0 90 16 166/91 (116) 98 Room Air 97.0 Physical Exam General: Alert, Oriented X3, Cooperative, No acute distress Heart: Regular rate, Normal S1, Normal S2 Lungs: Clear Abdomen: Normal bowel sounds, Soft, No tenderness, Other (appears to reduce hernia) Extremities: No clubbing, No cyanosis Skin: No rashes, No breakdown Assessment and Plan Assessmemt and Plan Problems Medical Problems: (1) Abdominal pain Status: Acute (2) Hypomagnesemia Status: Acute (3) Urinary tract infection Status: Acute Comment Review of Relevant I have reviewed the following items cedric (where applicable) has been applied. Labs Laboratory Tests Test 03/03/19 05:40 03/03/19 06:38 03/03/19 06:45 White Blood Count 9.2 x10^3/uL (4.0-11.0) Red Blood Count 4.57 x10^6/uL (3.50-5.40) Hemoglobin 13.3 g/dL (12.0-15.5) Hematocrit 40.1 % (36.0-47.0) Mean Corpuscular Volume 88 fL (79-100) Mean Corpuscular Hemoglobin 29 pg (25-35) Mean Corpuscular Hemoglobin Concent 33 g/dL (31-37) Red Cell Distribution Width 16.0 % (11.5-14.5) Platelet Count 289 x10^3/uL (140-400) Neutrophils (%) (Auto) 80 % (31-73) Lymphocytes (%) (Auto) 16 % (24-48) Monocytes (%) (Auto) 3 % (0-9) Eosinophils (%) (Auto) 0 % (0-3) Basophils (%) (Auto) 0 % (0-3) Neutrophils # (Auto) 7.4 x10^3/uL (1.8-7.7) Lymphocytes # (Auto) 1.5 x10^3/uL (1.0-4.8) Monocytes # (Auto) 0.3 x10^3/uL (0.0-1.1) Eosinophils # (Auto) 0.0 x10^3/uL (0.0-0.7) Basophils # (Auto) 0.0 x10^3/uL (0.0-0.2) Sodium Level 140 mmol/L (136-145) Potassium Level 4.3 mmol/L (3.5-5.1) Chloride Level 102 mmol/L (98-107) Carbon Dioxide Level 26 mmol/L (21-32) Anion Gap 12 (6-14) Blood Urea Nitrogen 14 mg/dL (7-20) Creatinine 0.7 mg/dL (0.6-1.0) Estimated GFR (Cockcroft-Gault) 85.9 BUN/Creatinine Ratio 20 (6-20) Glucose Level 169 mg/dL (70-99) Calcium Level 9.3 mg/dL (8.5-10.1) Magnesium Level 1.7 mg/dL (1.8-2.4) Total Bilirubin 0.3 mg/dL (0.2-1.0) Aspartate Amino Transf (AST/SGOT) 21 U/L (15-37) Alanine Aminotransferase (ALT/SGPT) 23 U/L (14-59) Alkaline Phosphatase 90 U/L (46-116) Total Protein 7.8 g/dL (6.4-8.2) Albumin 3.5 g/dL (3.4-5.0) Albumin/Globulin Ratio 0.8 (1.0-1.7) Lipase 517 U/L (73-393) Troponin I Quantitative < 0.017 ng/mL (0.000-0.055) Urine Collection Type Unknown Urine Color Yellow Urine Clarity Cloudy Urine pH 6.0 Urine Specific [place] >=1.030 Urine Protein 100 mg/dL (NEG-TRACE) Urine Glucose (UA) Negative mg/dL (NEG) Urine Ketones (Stick) Negative mg/dL (NEG) Urine Blood Moderate (NEG) Urine Nitrite Negative (NEG) Urine Bilirubin Negative (NEG) Urine Urobilinogen Dipstick 0.2 mg/dL (0.2 mg/dL) Urine Leukocyte Esterase Large (NEG) Urine RBC 3-5 /HPF (0-2) Urine WBC 20-40 /HPF (0-4) Urine Squamous Epithelial Cells Mod /LPF Urine Bacteria Few /HPF (0-FEW) Urine Mucus Marked /LPF Medications Current Medications Sodium Chloride 1,000 ml @ 1,000 mls/hr Q1H IV Last administered on 03/03/19at 06:04; Start 03/03/19 at 05:30; Stop 03/03/19 at 06:29; Status DC Ondansetron HCl (Zofran) 4 mg 1X ONCE IV Last administered on 03/03/19at 06:04; Start 03/03/19 at 05:30; Stop 03/03/19 at 05:31; Status DC Ketorolac Tromethamine (Toradol 30mg Vial) 30 mg 1X ONCE IVP Last administered on 03/03/19at 07:43; Start 03/03/19 at 07:15; Stop 03/03/19 at 07:16; Status DC Iohexol (Omnipaque 300 Mg/ml) 75 ml 1X ONCE IV Last administered on 03/03/19at 07:38; Start 03/03/19 at 07:30; Stop 03/03/19 at 07:31; Status DC Info (CONTRAST GIVEN -- Rx MONITORING) 1 each PRN DAILY PRN MC SEE COMMENTS; Start 03/03/19 at 07:30; Stop 03/05/19 at 07:29 Ciprofloxacin/ Dextrose 200 ml @ 200 mls/hr 1X ONCE IV Last administered on 03/03/19at 08:57; Start 03/03/19 at 08:30; Stop 03/03/19 at 09:29; Status DC Ondansetron HCl (Zofran) 4 mg PRN Q8HRS PRN IV NAUSEA/VOMITING; Start 03/03/19 at 08:30; Stop 03/03/19 at 14:00; Status DC Morphine Sulfate (Morphine Sulfate) 4 mg PRN Q4HRS PRN IV PAIN Last administered on 03/03/19at 13:31; Start 03/03/19 at 08:30 Sodium Chloride 1,000 ml @ 150 mls/hr Q6H40M IV Last administered on 03/04/19at 05:44; Start 03/03/19 at 08:19; Stop 03/04/19 at 08:18; Status DC Ciprofloxacin/ Dextrose 200 ml @ 200 mls/hr Q12HR IV Last administered on 03/03/19at 21:34; Start 03/03/19 at 11:00; Stop 03/03/19 at 22:14; Status DC Amlodipine Besylate (Norvasc) 10 mg DAILY PO ; Start 03/04/19 at 11:00 Lisinopril (Prinivil) 20 mg DAILY PO ; Start 03/04/19 at 11:00 Loteprednol Etabonate (Lotemax) 1 drop QODAY OU ; Start 03/06/19 at 09:00; Status UNV Metoprolol Tartrate (Lopressor) 25 mg BID PO ; Start 03/04/19 at 11:00 Timolol Maleate (Timoptic 0.5% Ophth) 1 drop BID OU ; Start 03/04/19 at 11:00 Active Scripts Active Ibuprofen 600 Mg Tablet 600 Mg PO PRN Q6HRS PRN Medrol (Methylprednisolone) 4 Mg Tab.ds.pk 1 Pkg PO UD Reported Lotemax (Loteprednol Etabonate) 5 Ml Drops.susp 1 Drop EACHEYE QODAY Timoptic 0.5% (Timolol Maleate) 10 Ml Drops 1 Drop EACHEYE QODAY 30 Days Amlodipine Besylate 10 Mg Tablet 10 Mg PO DAILY Metoprolol Tartrate 25 Mg Tablet 1 Tab PO BID Lisinopril 20 Mg Tablet 1 Tab PO DAILY Vitals/I & O Vital Sign - Last 24 Hours 03/03/19 03/03/19 03/03/19 03/03/19 13:31 15:02 19:20 19:34 Temp 97.7 97.9 97.7 97.9 Pulse 70 85 Resp 18 18 B/P (MAP) 135/77 (96) 142/65 (90) Pulse Ox 97 86 O2 Delivery Room Air Room Air Room Air Room Air 03/03/19 03/03/19 03/04/19 03/04/19 20:32 23:02 03:02 07:00 Temp 98.0 97.9 98.0 98.0 97.9 98.0 Pulse 87 85 89 Resp 18 20 18 B/P (MAP) 129/68 (88) 130/72 (91) 156/69 (98) Pulse Ox 96 97 97 O2 Delivery Room Air Room Air Room Air Room Air 03/04/19 03/04/19 08:00 11:00 Temp 97.0 97.0 Pulse 90 Resp 16 B/P (MAP) 166/91 (116) Pulse Ox 98 O2 Delivery Room Air Room Air Intake and Output 03/03/19 03/03/19 03/04/19 15:00 23:00 07:00 Intake Total 1000 ml 0 ml 0 ml Balance 1000 ml 0 ml 0 ml DEEPIKA PEACOCK MD Mar 04, 2019 11:32
[2019-03-04] MEDS ORDERED: MAGNESIUM SULFATE 1GM 100 ML IV ONE (13:00)
[2019-03-04] MEDS: hydroCHLOROthiazide 12.5 MG CAPSULE PO SCH (13:36)
[2019-03-04] MEDS: NITROFURANTOIN MONOHYD/M-CRYST 100 MG CAPSULE. PO SCH (21:44)
[2019-03-04] MEDS: METOPROLOL TART IMMED RELEASE 50 MG TABLET. PO SCH (21:45)
[2019-03-05 03:00] VITALS: BP 139/71
[2019-03-05 07:00] VITALS: BP 154/90
[2019-03-05] MEDS: NITROFURANTOIN MONOHYD/M-CRYST 100 MG CAPSULE. PO SCH (08:41)
[2019-03-05] MEDS: METOPROLOL TART IMMED RELEASE 50 MG TABLET. PO SCH (08:42)
[2019-03-05] MEDS: hydroCHLOROthiazide 12.5 MG CAPSULE PO SCH (08:42)
[2019-03-05] MEDS ORDERED: TIMOLOL 0.5% OPHTH SOLUTION 5ML BOTTLE. OU SCH (09:00)
[2019-03-05] MEDS ORDERED: DEXAMETHASONE 0.1% OPHTH SOLUTION 5ML BOTTLE. OU SCH (09:00)
[2019-03-05] MEDS ORDERED: amLODIPine BESYLATE 10 MG TABLET PO SCH (09:00)
--- NOTE | 2019-03-05 10:14 | PDOC ---
PROGRESS NOTES History of Present Illness History of Present Illness IMPRESSION: Ventral hernia with multiple associated dilated fluid-filled loops of small bowel and decompressed bowel exiting towards the colon. Small amount of fluid is seen within the proximal colon. Findings concerning for a partial or developing small bowel obstruction associated with the ventral hernia. discharge dx Assessment/Plan Small bowel obstruction resolved Incidental finding of a UTI Plan macrobid 100mg po bid Consult general surgery Bowel rest IV fluids DVT prophylaxis Trend labs Full code no acute surgical needs consider evaluation at , given previous surgery there. WANTS TO DISCHARE TODAY AFTER LUNCH 03/05, feels better d/c planning 23 min Vitals Vitals Vital Signs Date Time Temp Pulse Resp B/P (MAP) Pulse Ox O2 Delivery O2 Flow Rate FiO2 03/05/19 08:42 62 154/90 03/05/19 07:00 98.1 16 97 Room Air 98.1 Physical Exam General: Alert, Oriented X3, Cooperative, No acute distress Heart: Regular rate, Normal S1, Normal S2 Lungs: Clear Abdomen: Normal bowel sounds, Soft, No tenderness, Other (appears to reduce hernia) Extremities: No clubbing, No cyanosis Skin: No rashes, No breakdown Assessment and Plan Assessmemt and Plan Problems Medical Problems: (1) Abdominal pain Status: Acute (2) Hypomagnesemia Status: Acute (3) Urinary tract infection Status: Acute Comment Review of Relevant I have reviewed the following items cedric (where applicable) has been applied. Labs Microbiology 03/03/19 Urine Culture - Final, Complete 03/03/19 Urine Culture Result 1 (SUMI) - Final, Complete Medications Current Medications Sodium Chloride 1,000 ml @ 1,000 mls/hr Q1H IV Last administered on 03/03/19at 06:04; Start 03/03/19 at 05:30; Stop 03/03/19 at 06:29; Status DC Ondansetron HCl (Zofran) 4 mg 1X ONCE IV Last administered on 03/03/19at 06:04; Start 03/03/19 at 05:30; Stop 03/03/19 at 05:31; Status DC Ketorolac Tromethamine (Toradol 30mg Vial) 30 mg 1X ONCE IVP Last administered on 03/03/19at 07:43; Start 03/03/19 at 07:15; Stop 03/03/19 at 07:16; Status DC Iohexol (Omnipaque 300 Mg/ml) 75 ml 1X ONCE IV Last administered on 03/03/19at 07:38; Start 03/03/19 at 07:30; Stop 03/03/19 at 07:31; Status DC Info (CONTRAST GIVEN -- Rx MONITORING) 1 each PRN DAILY PRN MC SEE COMMENTS; Start 03/03/19 at 07:30; Stop 03/05/19 at 07:29; Status DC Ciprofloxacin/ Dextrose 200 ml @ 200 mls/hr 1X ONCE IV Last administered on 03/03/19at 08:57; Start 03/03/19 at 08:30; Stop 03/03/19 at 09:29; Status DC Ondansetron HCl (Zofran) 4 mg PRN Q8HRS PRN IV NAUSEA/VOMITING; Start 03/03/19 at 08:30; Stop 03/03/19 at 14:00; Status DC Morphine Sulfate (Morphine Sulfate) 4 mg PRN Q4HRS PRN IV PAIN Last administered on 03/03/19at 13:31; Start 03/03/19 at 08:30 Sodium Chloride 1,000 ml @ 150 mls/hr Q6H40M IV Last administered on 03/04/19at 05:44; Start 03/03/19 at 08:19; Stop 03/04/19 at 08:18; Status DC Ciprofloxacin/ Dextrose 200 ml @ 200 mls/hr Q12HR IV Last administered on 03/03/19at 21:34; Start 03/03/19 at 11:00; Stop 03/03/19 at 22:14; Status DC Amlodipine Besylate (Norvasc) 10 mg DAILY PO Last administered on 03/04/19at 12:07; Start 03/04/19 at 11:00; Stop 03/04/19 at 12:18; Status DC Lisinopril (Prinivil) 20 mg DAILY PO ; Start 03/04/19 at 11:00; Stop 03/04/19 at 12:18; Status DC Dexamethasone (Maxidex) 1 drop QODAY OU ; Start 03/05/19 at 09:00; Stop 03/05/19 at 08:36; Status DC Metoprolol Tartrate (Lopressor) 25 mg BID PO Last administered on 03/04/19at 12:05; Start 03/04/19 at 11:00; Stop 03/04/19 at 12:33; Status DC Timolol Maleate (Timoptic 0.5% Ophth) 1 drop BID OU ; Start 03/04/19 at 11:00; Stop 03/04/19 at 12:17; Status DC Amlodipine Besylate (Norvasc) 5 mg DAILY PO Last administered on 03/05/19at 08:41; Start 03/05/19 at 09:00 Lisinopril (Prinivil) 20 mg QHS PO ; Start 03/04/19 at 21:00; Stop 03/04/19 at 12:33; Status DC Timolol Maleate (Timoptic 0.5% Ophth) 1 drop Q48H OU ; Start 03/05/19 at 09:00 Lisinopril (Prinivil) 40 mg QHS PO Last administered on 03/04/19at 21:44; Start 03/04/19 at 21:00 Metoprolol Tartrate (Lopressor) 50 mg BID PO Last administered on 03/05/19at 08:42; Start 03/04/19 at 21:00 Hydrochlorothiazide (Microzide) 12.5 mg DAILY PO Last administered on 03/05/19at 08:42; Start 03/04/19 at 13:00 Magnesium Sulfate/ Dextrose 100 ml @ 100 mls/hr 1X ONCE IV Last administered on 03/04/19at 13:36; Start 03/04/19 at 13:00; Stop 03/04/19 at 13:59; Status DC Nitrofurantoin Macrocrystals (Macrobid) 100 mg BID PO Last administered on 03/05/19at 08:41; Start 03/04/19 at 21:00 Dexamethasone (Maxidex) 1 drop QODAY OU ; Start 03/06/19 at 09:00 Active Scripts Active Ibuprofen 600 Mg Tablet 600 Mg PO PRN Q6HRS PRN Medrol (Methylprednisolone) 4 Mg Tab.ds.pk 1 Pkg PO UD Reported Lotemax (Loteprednol Etabonate) 5 Ml Drops.susp 1 Drop EACHEYE QODAY Timoptic 0.5% (Timolol Maleate) 10 Ml Drops 1 Drop EACHEYE QODAY 30 Days Amlodipine Besylate 10 Mg Tablet 10 Mg PO DAILY Metoprolol Tartrate 25 Mg Tablet 1 Tab PO BID Lisinopril 20 Mg Tablet 1 Tab PO DAILY Vitals/I & O Vital Sign - Last 24 Hours 03/04/19 03/04/19 03/04/19 03/04/19 11:00 12:05 12:07 15:00 Temp 97.0 97.9 97.0 97.9 Pulse 90 90 90 76 Resp 16 18 B/P (MAP) 166/91 (116) 166/91 166/91 133/68 (89) Pulse Ox 98 94 O2 Delivery Room Air Room Air 03/04/19 03/04/19 03/04/19 03/04/19 19:00 19:35 21:40 21:44 Temp 97.9 97.9 Pulse 78 84 84 Resp 18 B/P (MAP) 142/77 (98) 133/81 (98) 133/81 Pulse Ox 95 O2 Delivery Room Air Room Air Room Air 03/04/19 03/04/19 03/05/19 03/05/19 21:45 23:00 03:00 07:00 Temp 97.2 97.3 98.1 97.2 97.3 98.1 Pulse 84 79 73 62 Resp 18 18 16 B/P (MAP) 133/81 138/72 (94) 139/71 (93) 154/90 (111) Pulse Ox 100 98 97 O2 Delivery Room Air Room Air Room Air 03/05/19 03/05/19 08:41 08:42 Pulse 62 62 B/P (MAP) 154/90 154/90 Intake and Output 03/04/19 03/04/19 03/05/19 15:00 23:00 07:00 Intake Total 360 ml 240 ml Balance 360 ml 240 ml DEEPIKA PEACOCK MD Mar 05, 2019 10:14
[2019-03-05 11:00] VITALS: BP 148/89
--- NOTE | 2019-03-05 14:50 | PDOC3 ---
Discharge Summary Date of Admission: Mar 03, 2019 Date of Discharge: Mar 05, 2019 Follow-Up: 3-5 days Admitting Diagnosis comment: discharge dx Assessment/Plan Small bowel obstruction resolved Incidental finding of a UTI Plan macrobid 100mg po bid Consult general surgery Bowel rest IV fluids DVT prophylaxis Trend labs Full code no acute surgical needs consider evaluation at , given previous surgery there. WANTS TO DISCHARE TODAY AFTER LUNCH 03/05, feels better d/c planning 23 min Vitals Vitals Vital Signs Date Time Temp Pulse Resp B/P (MAP) Pulse Ox O2 Delivery O2 Flow Rate FiO2 03/05/19 08:42 62 154/90 03/05/19 07:00 98.1 16 97 Room Air 98.1 Physical Exam General: Alert, Oriented X3, Cooperative, No acute distress Heart: Regular rate, Normal S1, Normal S2 Lungs: Clear Abdomen: Normal bowel sounds, Soft, No tenderness, Other (appears to reduce hernia) Extremities: No clubbing, No cyanosis Skin: No rashes, No breakdown FINAL DIAGNOSIS Problems Medical Problems: (1) Abdominal pain Status: Acute (2) Hypomagnesemia Status: Acute (3) Urinary tract infection Status: Acute Brief Hospital Course Ms. Cho is a 58 old [sex] who presented with [ partial SBO] CONDITION AT DISCHARGE: Improved Discharge Medications Current Medications Sodium Chloride 1,000 ml @ 1,000 mls/hr Q1H IV Last administered on 03/03/19at 06:04; Start 03/03/19 at 05:30; Stop 03/03/19 at 06:29; Status DC Ondansetron HCl (Zofran) 4 mg 1X ONCE IV Last administered on 03/03/19at 06:04; Start 03/03/19 at 05:30; Stop 03/03/19 at 05:31; Status DC Ketorolac Tromethamine (Toradol 30mg Vial) 30 mg 1X ONCE IVP Last administered on 03/03/19at 07:43; Start 03/03/19 at 07:15; Stop 03/03/19 at 07:16; Status DC Iohexol (Omnipaque 300 Mg/ml) 75 ml 1X ONCE IV Last administered on 03/03/19at 07:38; Start 03/03/19 at 07:30; Stop 03/03/19 at 07:31; Status DC Info (CONTRAST GIVEN -- Rx MONITORING) 1 each PRN DAILY PRN MC SEE COMMENTS; Start 03/03/19 at 07:30; Stop 03/05/19 at 07:29; Status DC Ciprofloxacin/ Dextrose 200 ml @ 200 mls/hr 1X ONCE IV Last administered on 03/03/19at 08:57; Start 03/03/19 at 08:30; Stop 03/03/19 at 09:29; Status DC Ondansetron HCl (Zofran) 4 mg PRN Q8HRS PRN IV NAUSEA/VOMITING; Start 03/03/19 at 08:30; Stop 03/03/19 at 14:00; Status DC Morphine Sulfate (Morphine Sulfate) 4 mg PRN Q4HRS PRN IV PAIN Last administered on 03/03/19at 13:31; Start 03/03/19 at 08:30 Sodium Chloride 1,000 ml @ 150 mls/hr Q6H40M IV Last administered on 03/04/19at 05:44; Start 03/03/19 at 08:19; Stop 03/04/19 at 08:18; Status DC Ciprofloxacin/ Dextrose 200 ml @ 200 mls/hr Q12HR IV Last administered on 03/03/19at 21:34; Start 03/03/19 at 11:00; Stop 03/03/19 at 22:14; Status DC Amlodipine Besylate (Norvasc) 10 mg DAILY PO Last administered on 03/04/19at 12:07; Start 03/04/19 at 11:00; Stop 03/04/19 at 12:18; Status DC Lisinopril (Prinivil) 20 mg DAILY PO ; Start 03/04/19 at 11:00; Stop 03/04/19 at 12:18; Status DC Dexamethasone (Maxidex) 1 drop QODAY OU ; Start 03/05/19 at 09:00; Stop 03/05/19 at 08:36; Status DC Metoprolol Tartrate (Lopressor) 25 mg BID PO Last administered on 03/04/19at 12:05; Start 03/04/19 at 11:00; Stop 03/04/19 at 12:33; Status DC Timolol Maleate (Timoptic 0.5% [facility]) 1 drop BID OU ; Start 03/04/19 at 11:00; Stop 03/04/19 at 12:17; Status DC Amlodipine Besylate (Norvasc) 5 mg DAILY PO Last administered on 03/05/19at 08:41; Start 03/05/19 at 09:00 Lisinopril (Prinivil) 20 mg QHS PO ; Start 03/04/19 at 21:00; Stop 03/04/19 at 12:33; Status DC Timolol Maleate (Timoptic 0.5% Ophth) 1 drop Q48H OU ; Start 03/05/19 at 09:00 Lisinopril (Prinivil) 40 mg QHS PO Last administered on 03/04/19at 21:44; Start 03/04/19 at 21:00 Metoprolol Tartrate (Lopressor) 50 mg BID PO Last administered on 03/05/19at 08:42; Start 03/04/19 at 21:00 Hydrochlorothiazide (Microzide) 12.5 mg DAILY PO Last administered on 03/05/19at 08:42; Start 03/04/19 at 13:00 Magnesium Sulfate/ Dextrose 100 ml @ 100 mls/hr 1X ONCE IV Last administered on 03/04/19at 13:36; Start 03/04/19 at 13:00; Stop 03/04/19 at 13:59; Status DC Nitrofurantoin Macrocrystals (Macrobid) 100 mg BID PO Last administered on 03/05/19at 08:41; Start 03/04/19 at 21:00 Dexamethasone (Maxidex) 1 drop QODAY OU ; Start 03/06/19 at 09:00 Active Scripts Active Ibuprofen 600 Mg Tablet 600 Mg PO PRN Q6HRS PRN Medrol (Methylprednisolone) 4 Mg Tab.ds.pk 1 Pkg PO UD Reported Lotemax (Loteprednol Etabonate) 5 Ml Drops.susp 1 Drop EACHEYE QODAY Timoptic 0.5% (Timolol Maleate) 10 Ml Drops 1 Drop EACHEYE QODAY 30 Days Amlodipine Besylate 10 Mg Tablet 10 Mg PO DAILY Metoprolol Tartrate 25 Mg Tablet 1 Tab PO BID Lisinopril 20 Mg Tablet 1 Tab PO DAILY Vital Signs Vital Signs Date Time Temp Pulse Resp B/P (MAP) Pulse Ox O2 Delivery O2 Flow Rate FiO2 03/05/19 11:00 97.7 76 18 148/89 (108) 96 Room Air 97.7 Allergies Allergies Coded Allergies Type Severity Reaction Last Updated Verified cefazolin Allergy Intermediate 02/04/18 Yes ciprofloxacin Allergy Mild 03/03/19 Yes Disposition/Orders: D/C to Home DEEPIKA PEACOCK MD Mar 05, 2019 14:50
[2019-03-05] MEDS ORDERED: METO50TA6 PO (14:53)
[2019-03-05] MEDS ORDERED: HYDR12.575 PO (14:53)
[2019-03-05] MEDS ORDERED: LISI-130 PO (14:53)
[2019-03-05] MEDS ORDERED: NITR100C6 PO (14:53)
[2019-03-05] MEDS ORDERED: AMLO10TA8 PO (14:53)
--- NOTE | 2019-03-05 14:54 | DISCH ---
DISCHARGE INSTRUCTIONS Condition on Discharge Condition on Discharge: Stable Activity After Discharge Activity Instructions for Disc: Activity as tolerated Lifting Instructions after Dis: No heavy lifting, No pulling or pushing Driving Instructions after Dis: Do not drive Diet after Discharge Diet after Discharge: Regular Checks after Discharge Checks after discharge: Check blood press - daily Contacting the DRKalyn after DC Call your doctor for: If your condition worsens Follow-Up Follow up with: [facility] specialist Follow Up With: Primary Care in 1 week DEEPIKA PEACOCK MD Mar 05, 2019 14:54
[2019-03-05 15:00] VITALS: BP 154/99
[2019-03-06] MEDS ORDERED: DEXAMETHASONE 0.1% OPHTH SOLUTION 5ML BOTTLE. OU SCH (09:00)
== END 2019-03-05 15:18 | disposition home or self-care (01) | DRG 394 ==
LOC: ER 04:58 → 4 NORTH 08:11
PROVIDERS: ADMIT Internal Medicine; ATTEND Internal Medicine
DX: K43.6 Other and unspecified ventral hernia with obstruction, without gangrene (principal); N39.0 Urinary tract infection, site not specified; E78.5 Hyperlipidemia, unspecified; E83.42 Hypomagnesemia; E66.01 Morbid (severe) obesity due to excess calories; Z90.710 Acquired absence of both cervix and uterus; Z87.442 Personal history of urinary calculi; Z88.1 Allergy status to other antibiotic agents; Z88.8 Allergy status to other drugs, medicaments and biological substances; Z68.33 Body mass index [BMI] 33.0-33.9, adult; Z88.0 Allergy status to penicillin; I10 Essential (primary) hypertension
CPT/HCPCS: 36415; 74018; 74021; 74177; 80053; 81001; 83690; 83735; 84484; 85025; 87086; 96361; 96374; 96375; J0744; J1885; J2270; J2405; J3475; J7030; Q9967; 99285-25; G0378

== ENCOUNTER 2020-11-06 16:11 | Emergency (ER) | payer BC ==
[~2020-11-06] VITALS: Ht 157.5 cm; Wt 82.7 kg
[~2020-11-06 16:11] MED LIST changes: +AMLO-187 PO; -AMLO10TA8 PO; +HYDR12.575 PO; +LISI-130 PO; -LISI-334 PO; +LISI20TA18 PO; +LOTE5DRO2 EACHEYE; +METO50TA6 PO; +NITR100C6 PO; +TIMO10DR5 EACHEYE
[2020-11-06 17:17] VITALS: BP 142/79
[2020-11-06] MEDS ORDERED: IBUPROFEN 400 MG TABLET. PO ONE (17:30)
--- NOTE | 2020-11-06 18:49 | RAD ---
XR FOOT_RIGHT 3 VIEWS History: Reason: medial r foot pain / Spl. Instructions: / History: Technique: 3 views right foot Comparison: None. Findings: Advanced first MTP DJD. No dislocation. No acute fracture. Mild midfoot DJD. Technical calcaneal spur. Impression: 1. No acute osseous abnormalities. 2. Advanced first MTP DJD. Electronically signed by: Bill Islas DO (11/06/2020 6:47 PM) [facility]
--- NOTE | 2020-11-06 19:00 | PHYS DOC ---
Past Medical History Past Medical History: DVT, Hypertension, Other Additional Past Medical Histor: HLD Past Surgical History: Hysterectomy, Other Additional Past Surgical Histo: hernia repair, kidney stone, right eye Smoking Status: Never Smoker Alcohol Use: None Drug Use: None General Adult EDM: Chief Complaint: FOOT INJURY PAIN HPI: HPI: Patient is a 59 year old female who presents with right medial midfoot pain. Patient states the pain has been present for a few months, but today the pain has been unbearable. In order to relieve her pain she has taken [id number] Tylenol, with her last dose being night before last. Patient denies any injury or trauma, and any more physical activity than normal. She denies swelling, redness, warmth. Patient has no other complaints at this time. Review of Systems: Review of Systems: Constitutional: Denies fever or chills. Respiratory: Denies cough or shortness of breath. Cardiovascular: Denies chest pain or edema. Musculoskeletal: See HPI Neurologic: Denies headache, focal weakness or sensory changes. Heart Score: C/O Chest Pain: No Current Medications: Current Medications Medications (Trade) Dose Ordered Sig/Cristina Start Time Stop Time Status Last Admin Dose Admin Ibuprofen (Motrin) 800 mg 1X ONCE 11/06/20 17:30 11/06/20 17:31 DC 11/06/20 17:41 800 MG Allergies: Allergies: Allergies Coded Allergies Type Severity Reaction Last Updated Verified cefazolin Allergy Intermediate 02/04/18 Yes ciprofloxacin Allergy Mild 03/03/19 Yes Physical Exam: PE: Constitutional: Well developed, well nourished, no acute distress, non-toxic appearance. Cardiovascular:Heart rate regular rhythm, no murmur. Lungs & Thorax: Bilateral breath sounds clear to auscultation. Extremities: Patient has mild tenderness at the base of the first metatarsal on the right foot with full range of motion and strength intact. Extremities otherwise no tenderness, no cyanosis, no clubbing, ROM intact, no edema. Neurovascular intact in bilateral lower extremities. Neurologic: Alert and oriented x3, normal motor function, normal sensory function, no focal deficits noted. Current Patient Data: Vital Signs: Vital Signs Date Time Temp Pulse Resp B/P (MAP) Pulse Ox O2 Delivery O2 Flow Rate FiO2 11/06/20 17:17 98.2 75 20 142/79 (100) 99 Room Air 98.2 Radiology/Procedures: Radiology/Procedures: PROCEDURE: FOOT RIGHT 3V XR FOOT_RIGHT 3 VIEWS History: Reason: medial r foot pain / Spl. Instructions: / History: Technique: 3 views right foot Comparison: None. Findings: Advanced first MTP DJD. No dislocation. No acute fracture. Mild midfoot DJD. Technical calcaneal spur. Impression: 1. No acute osseous abnormalities. 2. Advanced first MTP DJD. Electronically signed by: Bill Islas DO (11/06/2020 6:47 PM) [facility] Course & Med Decision Making: Course & Med Decision Making Pertinent Labs and Imaging studies reviewed. (See chart for details) Patient denies trauma and injury to the foot. X-rays will be ordered to rule out pathologic fracture as well as any calcification of soft tissues. X-rays negative for fracture or plantar fashion calcification. X-ray does show degenerative disc disease/arthritic changes to the first MCP joint on the right foot. Patient will be instructed to follow-up with orthopedic for further management of her foot pain. Rg Disclaimer: Rg Disclaimer: This electronic medical record was generated, in whole or in part, using a voice recognition dictation system. Departure Departure Impression: Primary Impression: Degenerative joint disease of foot, right Qualified Codes: M19.071 - Primary osteoarthritis, right ankle and foot Additional Impression: Right foot pain Disposition: 01 HOME / SELF CARE / HOMELESS Condition: STABLE Referrals: TRISTIAN LAYTON (PCP) KHADRA MATUTE DO Patient Instructions: Arthritis, Nonspecific, [id number] Additional Instructions: Your x-rays today did not show fracture in your right foot, however it does exhibit some arthritic changes to the first metatarsal joint. You may use [id number] anti-inflammatory medication to manage her pain and inflammation (Advil/ibuprofen, Aleve/naproxen). You should schedule a follow-up appointment with orthopedic clinic for further management. Please return to the emergency department if your pain is not controlled well at home. ZECHARIAH GAINES Nov 06, 2020 19:00
== END 2020-11-06 19:09 | disposition home or self-care (01) ==
LOC: ER 16:11
DX: M19.071 Primary osteoarthritis, right ankle and foot (principal); I10 Essential (primary) hypertension; Z86.718 Personal history of other venous thrombosis and embolism; Z88.1 Allergy status to other antibiotic agents
CPT/HCPCS: 73630; 99283